=== PATIENT | male | born 1940 | race Asian ===

== ENCOUNTER 2018-08-15 09:01 | Inpatient (IN) | payer OTHER, MEDICAID ==
[2018-08-15] MEDS ORDERED: NS 1,000 ML IV ONE (09:09)
--- NOTE | 2018-08-15 09:12 | EDPHY ---
H & P Time Seen by Provider: 08/15/18 09:09 HPI/ROS: CHIEF COMPLAINT: Found down HISTORY OF PRESENT ILLNESS: The patient is a 77-year-old man who was found down this morning lying on his carpet. He told paramedics that he fell last night around 9:00 p.m.. He states that he tripped but that he has been extremely weak yesterday and today. He does not know why. He denies chest pain or shortness of breath. No abdominal pain. No fevers or recent illness. He denies headache or neck pain. He does have a bruise to his left thenar eminence. It appears to be more than a day old but he thinks that is from last night. No difficulty through range of motion. He is not anticoagulated. Severity: Moderate Modifying factors: None REVIEW OF SYSTEMS: Constitutional: See HPI denies: chills, fever, recent illness, recent injury EENTM: denies: blurred vision, double vision, nose congestion Respiratory: denies: cough, shortness of breath Cardiac: denies: chest pain, irregular heart rate, lightheadedness, palpitations Gastrointestinal/Abdominal: denies: abdominal pain, diarrhea, nausea, vomiting, blood streaked stools Genitourinary: denies: dysuria, frequency, hematuria, pain Musculoskeletal: See HPI Skin: denies: lesions, rash, jaundice, bruising Neurological: denies: headache, numbness, paresthesia, tingling, dizziness, weakness Hematologic/Lymphatic: denies: blood clots, easy bleeding, easy bruising Immunologic/allergic: denies: HIV/AIDS, transplant 10 systems reviewed and negative except as noted EXAM: GENERAL: Weak, slow, well-nourished and in no acute distress. No obvious trauma HEAD: Atraumatic, normocephalic. EYES: Pupils equal round and reactive to light, extraocular movements intact, sclera anicteric, conjunctiva are normal. ENT: TMs normal, nares patent, oropharynx clear without exudates. Moist mucous membranes. NECK: Normal range of motion, supple without lymphadenopathy or JVD. No tenderness LUNGS: Breath sounds clear to auscultation bilaterally and equal. No wheezes rales or rhonchi. HEART: Regular rate and rhythm without murmurs, rubs or gallops. ABDOMEN: Soft, nontender, normoactive bowel sounds. No guarding, no rebound. No masses appreciated. BACK: No CVA tenderness, no spinal tenderness, step-offs or deformities EXTREMITIES: Normal range of motion, no pitting or edema. No clubbing or cyanosis. NEUROLOGICAL: NIH stroke score 0. Cranial nerves II through XII grossly intact. Normal speech. 5/5 strength, normal movement in all extremities, normal sensation, normal reflexes, normal cerebellar exam PSYCH: Normal mood, normal affect. SKIN: Warm, dry, normal turgor, no visible rashes or lesions. Source: Patient Exam Limitations: No limitations - Medical/Surgical History Hx Asthma: No Hx Chronic Respiratory Disease: No Hx Diabetes: Yes Hx Cardiac Disease: Yes Hx Renal Disease: No Hx Cirrhosis: No Hx Alcoholism: No Hx HIV/AIDS: No Hx Splenectomy or Spleen Trauma: No Other PMH: AFIB. HEP C. HTN, DM - Family History Significant Family History: No pertinent family hx - Social History Smoking Status: Never smoked Alcohol Use: None Constitutional: Initial Vital Signs Temperature (C) 36.7 C 08/15/18 09:11 Heart Rate 82 08/15/18 09:11 Respiratory Rate 16 08/15/18 09:11 Blood Pressure 142/90 H 08/15/18 09:11 O2 Sat (%) 96 08/15/18 09:11 O2 Delivery Mode Room Air Allergies/Adverse Reactions: No Known Allergies Allergy (Verified 01/19/18 10:08) Home Medications: Medication Instructions Recorded Aspirin EC [Aspirin EC 81 mg (*)] 81 mg PO DAILY 01/19/18 Gabapentin 600 mg PO DAILY@1930 01/19/18 Lisinopril [Zestril 20 mg (*)] 20 mg PO DAILY 01/19/18 Multivitamins [Multivitamin (*)] 1 each PO DAILY 01/19/18 Polyethylene Glycol 3350 [Miralax 17 gm PO DAILY pkt 01/22/18 17 gm (*)] Pravastatin Sodium [Pravachol] 40 mg PO DAILY tab 01/22/18 Sennosides [Senokot] 1 tab PO DAILY tab 01/22/18 Cyanocobalamin [Vitamin B12 (*)] 1,000 mcg PO DAILY 08/15/18 Medical Decision Making - Diagnostics EKG Interpretation: An EKG obtained and was read and documented in trace view. Please see trace view for full reading and report. Sinus rhythm, first-degree block, similar to previous Imaging Results: Imaging Impressions Chest X-Ray 08/15/18 09:10 Impression: Mild prominence of the cardiac silhouette; otherwise negative chest. No pneumonia identified.. Head CT 08/15/18 09:12 Impression: Nothing acute. Findings and recommendations discussed with Lan Sen at 9:50 a.m. on 08/15. Final report concurs with initial preliminary interpretation. 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 Imaging: Discussed imaging studies w/ calliope player Radiologist ED Course/Re-evaluation: 10:15 a.m.. Patient's x-rays are reassuring. He is in mild rhabdo. He is being hydrated. No renal dysfunction at this point. Plan to admit. Will start antibiotics for elevated lactate. Urinalysis pending. Have been in communication with patient's son who is an orthopedic surgeon here. 11:45 a.m. I discussed the case with Tamera who accepted for the hospitalist service. Will treat for rhabdo and generalized weakness. Urinalysis unremarkable except for small amount of blood likely from the catheter. Patient has received antibiotics. He tells me that he is still feeling quite weak. He denies any focal pain. Differential Diagnosis: Partial list of the Differential diagnosis considered include but were not limited to; rhabdomyolysis, dehydration, CVA, sepsis, urinary tract infection and although unlikely based on the history and physical exam, I also considered pneumonia, intracranial hemorrhage, cervical spine injury. - Data Points Laboratory Results: Laboratory Results 08/15/18 09:15 08/15/18 09:15 08/15/18 08/15/18 08/15/18 11:13 10:28 09:20 WBC RBC Hgb Hct MCV MCH MCHC RDW Plt Count MPV Neut % (Auto) Lymph % (Auto) Reagan % (Auto) Eos % (Auto) Baso % (Auto) Nucleat RBC Rel Count Absolute Neuts (auto) Absolute Lymphs (auto) Absolute Monos (auto) Absolute Eos (auto) Absolute Basos (auto) Absolute Nucleated RBC Immature Gran % Immature Gran # PT INR APTT VBG Lactic Acid 2.5 mmol/L H mmol/L 3.1 mmol/L H mmol/L (0.7-2.1) (0.7-2.1) Sodium Potassium Chloride Carbon Dioxide Anion Gap BUN Creatinine Estimated GFR Glucose Calcium Phosphorus Total Bilirubin Creatine Kinase CK-MB (CK-2) Fraction CK-MB (CK-2) % Creatine Kinase Interp POC Troponin I Urine Color YELLOW Urine Appearance CLEAR Urine pH 5.0 (5.0-7.5) Ur Specific [place] 1.015 (1.002-1.030) Urine Protein NEGATIVE (NEGATIVE) Urine Ketones TRACE H (NEGATIVE) Urine Blood 1+ H (NEGATIVE) Urine Nitrate NEGATIVE (NEGATIVE) Urine Bilirubin NEGATIVE (NEGATIVE) Urine Urobilinogen NEGATIVE EU EU (0.2-1.0) Ur Leukocyte Esterase NEGATIVE (NEGATIVE) Urine RBC 3-5 /hpf H /hpf (0-3) Urine WBC 0-1 /hpf /hpf (0-3) Ur Epithelial Cells NONE SEEN /lpf /lpf (NONE-1+) Hyaline Casts 1-5 /lpf /lpf (0-1) Urine Mucus TRACE /lpf /lpf (NONE-1+) Urine Glucose 1+ H (NEGATIVE) 08/15/18 08/15/18 08/15/18 09:15 09:15 09:15 WBC 12.97 10^3/uL H 10^3/uL (3.80-9.50) RBC 5.73 10^6/uL 10^6/uL (4.40-6.38) Hgb 16.9 g/dL g/dL (13.7-17.5) Hct 50.5 % % (40.0-51.0) MCV 88.1 fL fL (81.5-99.8) MCH 29.5 pg pg (27.9-34.1) MCHC 33.5 g/dL g/dL (32.4-36.7) RDW 13.3 % % (11.5-15.2) Plt Count 230 10^3/uL 10^3/uL (150-400) MPV 10.0 fL fL (8.7-11.7) Neut % (Auto) 86.0 % H % (39.3-74.2) Lymph % (Auto) 5.5 % L % (15.0-45.0) Reagan % (Auto) 7.4 % % (4.5-13.0) Eos % (Auto) 0.2 % L % (0.6-7.6) Baso % (Auto) 0.4 % % (0.3-1.7) Nucleat RBC Rel Count 0.0 % % (0.0-0.2) Absolute Neuts (auto) 11.16 10^3/uL H 10^3/uL (1.70-6.50) Absolute Lymphs (auto) 0.71 10^3/uL L 10^3/uL (1.00-3.00) Absolute Monos (auto) 0.96 10^3/uL H 10^3/uL (0.30-0.80) Absolute Eos (auto) 0.02 10^3/uL L 10^3/uL (0.03-0.40) Absolute Basos (auto) 0.05 10^3/uL 10^3/uL (0.02-0.10) Absolute Nucleated RBC 0.00 10^3/uL 10^3/uL (0-0.01) Immature Gran % 0.5 % % (0.0-1.1) Immature Gran # 0.07 10^3/uL 10^3/uL (0.00-0.10) PT 12.3 SEC SEC (12.0-15.0) INR 0.95 (0.83-1.16) APTT 27.9 SEC SEC (23.0-38.0) VBG Lactic Acid Sodium 140 mEq/L mEq/L (135-145) Potassium 4.1 mEq/L mEq/L (3.5-5.2) Chloride 104 mEq/L mEq/L (97-110) Carbon Dioxide 23 mEq/l mEq/l (22-31) Anion Gap 13 mEq/L mEq/L (6-14) BUN 23 mg/dL mg/dL (7-23) Creatinine 1.1 mg/dL mg/dL (0.7-1.3) Estimated GFR > 60 Glucose 124 mg/dL H mg/dL (70-100) Calcium 11.5 mg/dL H mg/dL (8.5-10.4) Phosphorus 2.4 mg/dL L mg/dL (2.5-4.5) Total Bilirubin 1.3 mg/dL mg/dL (0.1-1.4) Creatine Kinase 3912 IU/L H IU/L (0-224) CK-MB (CK-2) Fraction 40.00 ng/mL H ng/mL (0.00-4.55) CK-MB (CK-2) % < 0.1 % % (0.0-4.0) Creatine Kinase Interp NEGATIVE (NEGATIVE) POC Troponin I Urine Color Urine Appearance Urine pH Ur Specific [place] Urine Protein Urine Ketones Urine Blood Urine Nitrate Urine Bilirubin Urine Urobilinogen Ur Leukocyte Esterase Urine RBC Urine WBC Ur Epithelial Cells Hyaline Casts Urine Mucus Urine Glucose 08/15/18 09:11 WBC RBC Hgb Hct MCV MCH MCHC RDW Plt Count MPV Neut % (Auto) Lymph % (Auto) Reagan % (Auto) Eos % (Auto) Baso % (Auto) Nucleat RBC Rel Count Absolute Neuts (auto) Absolute Lymphs (auto) Absolute Monos (auto) Absolute Eos (auto) Absolute Basos (auto) Absolute Nucleated RBC Immature Gran % Immature Gran # PT INR APTT VBG Lactic Acid Sodium Potassium Chloride Carbon Dioxide Anion Gap BUN Creatinine Estimated GFR Glucose Calcium Phosphorus Total Bilirubin Creatine Kinase CK-MB (CK-2) Fraction CK-MB (CK-2) % Creatine Kinase Interp POC Troponin I 0.04 ng/mL ng/mL (0.00-0.08) Urine Color Urine Appearance Urine pH Ur Specific [place] Urine Protein Urine Ketones Urine Blood Urine Nitrate Urine Bilirubin Urine Urobilinogen Ur Leukocyte Esterase Urine RBC Urine WBC Ur Epithelial Cells Hyaline Casts Urine Mucus Urine Glucose Medications Given: Discontinued Medications Sodium Chloride (Ns) 1,000 mls @ 0 mls/hr IV EDNOW ONE; Wide Open PRN Reason: Protocol Stop: 08/15/18 09:10 Last Admin: 08/15/18 10:04 Dose: 1,000 mls Sodium Chloride (Ns) 2,000 mls @ 4,000 mls/hr 30 ml/kg infuse over 30 min ( 2000 ml) IV EDNOW ONE PRN Reason: Protocol Stop: 08/15/18 10:21 Last Admin: 08/15/18 11:00 Dose: 1,000 mls Ceftriaxone Sodium/Dextrose (Rocephin 1 Gm (Premix)) 50 mls @ 100 mls/hr IV EDNOW ONE PRN Reason: Protocol Stop: 08/15/18 10:24 Last Admin: 08/15/18 11:18 Dose: 50 mls Point of Care Test Results: Chemistry 08/15/18 09:11 POC Troponin I 0.04 ng/mL ng/mL (0.00-0.08) Departure - Departure Disposition: [facility] Inpatient Acute Clinical Impression: Generalized weakness Rhabdomyolysis Qualifiers: Rhabdomyolysis type: non-traumatic Qualified Code(s): M62.82 - Rhabdomyolysis Condition: Fair
[2018-08-15 09:20] LABS: PLATELET COUNT 230 10^3/uL (150-400)
[2018-08-15 09:34] LABS: INR 0.95 (0.83-1.16); PROTIME(PATIENT) 12.3 SEC (12.0-15.0)
[2018-08-15] MEDS ORDERED: NS 2,000 ML IV ONE (09:52)
[2018-08-15 10:09] LABS: CREATINE KINASE 3912 IU/L (0-224)
--- NOTE | 2018-08-15 11:34 | CPEKG ---
Test Reason : OPEN Blood Pressure : / mmHG Vent. Rate : 086 BPM Atrial Rate : 088 BPM P-R Int : 280 ms QRS Dur : 099 ms QT Int : 378 ms P-R-T Axes : 071 052 057 degrees QTc Int : 452 ms Sinus rhythm Prolonged MI interval Borderline ST elevation, anterior leads Confirmed by Lan Sen ([id number]) on 08/15/2018 11:34:06 AM Referred By: Lan Sen Confirmed By:Lan Sen
[2018-08-15] MEDS ORDERED: ONDANSETRON DISINTEGRATING 4 MG TAB PO PRN (14:17)
[2018-08-15] MEDS ORDERED: ACETAMINOPHEN 325 MG TAB PO PRN (14:17)
[2018-08-15] MEDS ORDERED: ONDANSETRON 4 MG/2 ML VIAL IVP PRN (14:17)
--- NOTE | 2018-08-15 14:53 | GHP ---
[f rep st] HISTORY AND PHYSICAL DATE OF ADMISSION: 08/15/2018 HISTORY OF PRESENT ILLNESS: The patient is a pleasant 77-year-old gentleman with a history of vascul ar cerebellar parkinsonism, who has had somewhat significant decline over the last year requiring him to move from [place] to be with his son and [id number], who are physicians here at [facility]. About 6 to 8 months ago, he moved from his son's house to [facility] where he hopson s been doing okay. His son describes his gait as shuffling and using a walker. Last night, he fell. He was unable to get up and brought in this morning when he was found by staff. He denies antecede nt chest pain, palpitations, nausea, vomiting, or diarrhea. He says he has been eating and drinking well. He did not have lightheadedness or palpitations prior to this. The patient is somewhat retice nt with history. He answers questions and speaks slowly consistent with a patient with a Parkinson-l guillermo syndrome. He denies painful areas on his body. No fever or chills. REVIEW OF SYSTEMS: Complete 10-point review of systems conducted and negative except as noted in the HPI. 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 2. Neuropathy. 3. Hypertension. 4. Hyperlipidemia. ALLERGIES: No known drug allergies. HOME MEDICATIONS: Aspirin, cyanocobalamin, gabapentin, lisinopril, multivitamin, MiraLAX, pravastati n, and senna. He has had constipation in the past, but has been doing well. SOCIAL HISTORY: He is DNR. His son is Dakota Catherine, who is a [employer] shoulder surgeon. FAMILY HISTORY: Reviewed and unremarkable. PHYSICAL EXAMINATION: VITAL SIGNS: Temperature 36.6, blood pressure 128/77, pulse 80, breathing 12 times a minute, and 95% on room air. GENERAL: No acute distress, lying flat. HEENT: Sclerae are a nicteric. Oropharynx clear. Mucous membranes are moist. NECK: Supple without lymphadenopathy or J VD. LUNGS: Clear to auscultation bilaterally. HEART: S1 and S2. ABDOMEN: Soft, nontender, and n ondistended. LOWER EXTREMITIES: Without edema. Calves are nontender. SKIN: Without rash. NEUROL OGIC: Exam is nonfocal. There are no focal areas of bruising. There is no pain when I palpate his hips, shoulders, elbows, or ankles. No lower extremity edema. LABS: White count 13, hematocrit 50, and platelets 230,000. INR is normal at 1. Venous lactate was slightly elevated at 3.1, now 2.5. Sodium 140, potassium 4.1, chloride 104, bicarbonate 22, BUN 23, and creatinine 1.1. His baseline creatinine is 0.8 to 1. Calcium is slightly elevated at 11.5. It has been intermittently high typically would presence with slight dehydration. CK is 3912, and poin t of care troponin is 0.04, which is a negative value. Urinalysis shows 3 to 5 red cells, otherwise unremarkable. EKG interpreted by me shows sinus at 86 with normal axis and intervals. There are no ST-T wave changes. Chest x-ray interpreted by me shows mild prominence of cardiac silhouette, otherw ise unremarkable. No infiltrate. Noncontrast head CT is unremarkable. Hand x-ray shows osteoarthritis, but no fracture. I have discu ssed the case with Dr. Lan Sen. ASSESSMENT/PLAN: A 77-year-old gentleman with vascular parkinsonism, who presents with apparent mech anical fall and mild rhabdomyolysis. 1. Rhabdomyolysis. We will repeat a CK now. If it is trending up, we will continue to follow and c ontinue hydration. If it has flattened, we will stop following it. 2. Mechanical fall. I think he has a shuffling gait. I think he is at high risk of falling, and he is living somewhat independently. I think this is the etiology of his falls. In discussion with hi s son, we are not going to hannah medical cause of falls unless something becomes clinically apparent. 3. Lactic acidosis. I suspect this is delayed clearance in the setting of the patient's mild volume depletion. Will repeat. 4. Acute kidney injury, mild. 5. Hypercalcemia. I think this is volume related, but we will check a PTH for completeness. 6. Prophylaxis with sequential compression devices. CODE STATUS: Do not resuscitate. DISPOSITION: Inpatient status. /[id number]/MODL
[2018-08-15 16:52] LABS: CREATINE KINASE 2827 IU/L (0-224)
[2018-08-15] MEDS: NS 1,000 ML IV SCH ×2 (17:11→22:43)
[2018-08-15] MEDS: GABAPENTIN 300 MG CAP PO SCH (22:09)
[2018-08-16] MEDS: POLYETHYLENE GLYCOL 3350 17 GM PKT PO SCH (09:32)
[2018-08-16] MEDS: SENNOSIDES 1 TAB PO SCH (09:35)
[2018-08-16] MEDS: ASPIRIN EC 81 MG TAB PO SCH (09:35)
[2018-08-16] MEDS: LISINOPRIL 20 MG TAB PO SCH (09:35)
[2018-08-16] MEDS: MULTIVITAMINS 1 EACH TAB PO SCH (09:35)
[2018-08-16] MEDS: PRAVASTATIN SODIUM 40 MG TAB PO SCH (09:35)
[2018-08-16] MEDS: CYANO/VITAMIN B12 1000 MCG TAB PO SCH (09:35)
--- NOTE | 2018-08-16 13:06 | PDMN ---
Medical Necessity Medical necessity: Pt meets IP criteria per MD & MCG MG-MD Musculoskeletal Disease; est los >2 mn for eval/tx of rhabdomyolysis w/acute kidney injury & confusion s/p mechanical fall; admit for further monitoring, follow-up labs, IVFs & therapies; hx vascular parkinsonism; per H&P & order 08/15/18
[2018-08-16] MEDS: NS 1,000 ML IV SCH ×2 (14:30→21:35)
--- NOTE | 2018-08-16 15:27 | HOSPPROG ---
Hospitalist Progress Note Assessment/Plan: Subjective Follow-up on rhabdomyolysis. Patient was sitting in the chair at the bedside having breakfast at the time my evaluation. No acute events overnight. Patient denies having syncope with his fall. Objective Vitals as detailed below Physical exam General-awake alert conversant no acute distress Heart-regular rate and rhythm no murmurs Lungs-Clear to auscultation with normal respiratory effort Abdomen-soft nontender nondistended normal bowel sounds -no Kimbrough catheter in place Extremities-no significant pitting edema or calf pain with palpation Skin-no concerning skin rashes noted Objective Neuro-masked facies with bradykinesia of present Labs as detailed below Assessment plan Rhabdomyolysis-improving. CPK has declined from [id number]. Continue IV fluids and reassess again tomorrow. Fall-continue work with physical therapy. Patient was living at [facility] prior to coming to the hospital and receiving physical therapy per his report. Lactic acidosis-resolved with a repeat lactic acid level at 1.8. Hypercalcemia-improved from 11.5-9.5. Likely hyperparathyroidism as parathyroid hormone level elevated at 110. Will check a vitamin-D level with tomorrow morning's labs. I will recommend outpatient follow-up of his calcium level at the time of discharge. Parkinsonism-no current medical therapy to my knowledge. Neuropathy-patient is on gabapentin. Hypertension-controlled with current lisinopril. Monitor for hypotension. Hyperlipidemia-pravastatin. DVT prophylaxis-compression devices. Disposition-upon resolution of his rhabdomyolysis I would anticipate he would be stable to return back to [facility] but the plan for continued physical therapy and occupational therapy. Objective: Vital Signs Temp Pulse Resp BP Pulse Ox 36.4 C 77 16 129/71 H 94 08/16/18 11:49 08/16/18 11:49 08/16/18 11:49 08/16/18 11:49 08/16/18 11:49 Laboratory Results 08/16/18 06:13 08/15/18 08/16/18 08/17/18 05:59 05:59 05:59 Intake Total 1337 Balance 1337 PT 12.3 SEC (12.0-15.0) 08/15/18 09:15 INR 0.95 (0.83-1.16) 08/15/18 09:15 ICD10 Worksheet Patient Problems: Problems Problem Status Onset Generalized weakness Acute Rhabdomyolysis Acute Constipation Acute Dehydration Acute Near syncope Acute
--- NOTE | 2018-08-16 15:33 | ASMTCMCOM ---
CM Note CM Note Notes: Pt has been admitted from [facility] after a presumed fall. He was found down. He has generalized weakness, rhabdo. He has a hx of vascular Parkinson's and falls. PT is recommending inpt rehab, OT SNF. Pt's son and daughter in law are MDs in [facility] system. Therapy recommendations to be discussed with family. CM will follow for d/c needs. D/C plan: TBD Date Signed: 08/16/2018 03:33 PM Electronically Signed By:ROSA M Roy
--- NOTE | 2018-08-16 15:59 | ASMTCMCOM ---
CM Note CM Note Notes: Spoke with pt's son regarding PT/OT recommendations. It's unclear at this time if pt would be able to do 3 hrs of therapy at . Dr Catherine would like to wait a day or two to see if his father gets stronger. He is agreeable to a short term SNF stay if indicated. Pt gets 3 hrs of PT/OT per week at [facility]. D/C plan: TBD Date Signed: 08/16/2018 03:58 PM Electronically Signed By:ROSA M Roy
[2018-08-16] MEDS: GABAPENTIN 300 MG CAP PO SCH (19:10)
[2018-08-17 05:39] LABS: CREATINE KINASE 823 IU/L (0-224)
[2018-08-17] MEDS: SENNOSIDES 1 TAB PO SCH (09:55)
[2018-08-17] MEDS: CYANO/VITAMIN B12 1000 MCG TAB PO SCH (09:55)
[2018-08-17] MEDS: PRAVASTATIN SODIUM 40 MG TAB PO SCH (09:55)
[2018-08-17] MEDS: POLYETHYLENE GLYCOL 3350 17 GM PKT PO SCH (09:55)
[2018-08-17] MEDS: ASPIRIN EC 81 MG TAB PO SCH (09:55)
[2018-08-17] MEDS: LISINOPRIL 20 MG TAB PO SCH (09:55)
[2018-08-17] MEDS: MULTIVITAMINS 1 EACH TAB PO SCH (09:55)
--- NOTE | 2018-08-17 17:01 | HOSPPROG ---
Hospitalist Progress Note Assessment/Plan: Subjective Follow-up on rhabdomyolysis. Patient was resting comfortably in his bed today. Arousable and more conversant today as compared to yesterday's exam. We discussed basketball briefly as he was watching the [employer] tournament. Case management also made contact with me after discussion with physical therapy. A request was made for rehab consultation as well as neurologic consultation with the question of should he be on medical therapy. I reviewed the current running diagnosis of vascular parkinsonism with case management. Objective Vitals as detailed below Physical exam General-awake alert conversant no acute distress Heart-regular rate and rhythm no murmurs Lungs-Clear to auscultation with normal respiratory effort Abdomen-soft nontender nondistended normal bowel sounds -no Kimbrough catheter in place Extremities-no significant pitting edema or calf pain with palpation Skin-no concerning skin rashes noted Objective Neuro-masked facies with bradykinesia of present Labs as detailed below Assessment plan Rhabdomyolysis-improving. CPK declining. I think we can hold off on IV fluids at this time and reassess again tomorrow morning. Fall-continue work with physical therapy. Patient was living at [facility] prior to coming to the hospital and receiving physical therapy per his report. Will await inpatient rehab consultation as well. Hypercalcemia-improved from 11.5. Likely hyperparathyroidism as parathyroid hormone level elevated at 110. Vitamin-D level appears adequate at 30. I will recommend outpatient follow-up of his calcium level at the time of discharge. Parkinsonism-vascular. Neurology consult request placed for 2nd opinion. Neuropathy-patient is on gabapentin. Hypertension-controlled with current lisinopril. Monitor for hypotension. Hyperlipidemia-pravastatin. DVT prophylaxis-compression devices. Disposition-upon resolution of his rhabdomyolysis I would anticipate he would be stable to return back to [facility] but the plan for continued physical therapy and occupational therapy. Objective: Vital Signs Temp Pulse Resp BP Pulse Ox 36.6 C 70 16 163/82 H 94 08/17/18 16:00 08/17/18 16:00 08/17/18 16:00 08/17/18 16:00 08/17/18 16:00 Laboratory Results 08/17/18 05:07 08/16/18 08/17/18 08/18/18 05:59 05:59 05:59 Intake Total 1337 2932 Balance 1337 2932 PT 12.3 SEC (12.0-15.0) 08/15/18 09:15 INR 0.95 (0.83-1.16) 08/15/18 09:15 ICD10 Worksheet Patient Problems: Problems Problem Status Onset Generalized weakness Acute Rhabdomyolysis Acute Constipation Acute Dehydration Acute Near syncope Acute
[2018-08-17] MEDS: GABAPENTIN 300 MG CAP PO SCH (19:24)
[2018-08-18 05:29] LABS: CREATINE KINASE 403 IU/L (0-224)
[2018-08-18] MEDS: MULTIVITAMINS 1 EACH TAB PO SCH (08:20)
[2018-08-18] MEDS: LISINOPRIL 20 MG TAB PO SCH (08:20)
[2018-08-18] MEDS: ASPIRIN EC 81 MG TAB PO SCH (08:20)
[2018-08-18] MEDS: PRAVASTATIN SODIUM 40 MG TAB PO SCH (08:20)
[2018-08-18] MEDS: CYANO/VITAMIN B12 1000 MCG TAB PO SCH (08:20)
[2018-08-18] MEDS: SENNOSIDES 1 TAB PO SCH (08:21)
[2018-08-18] MEDS: POLYETHYLENE GLYCOL 3350 17 GM PKT PO SCH (08:21)
[2018-08-18] MEDS ORDERED: POTASSIUM CL 20 MEQ/15 ML UDCUP PO ONE (08:24)
--- NOTE | 2018-08-18 10:18 | GCON ---
[f rep st] CONSULTATION NEUROLOGIC CONSULTATION HISTORY: The patient is a 77-year-old gentleman who I am asked to see in neurologic consultation reg arding the question of vascular parkinsonism. He was seen in a previous consultation in the hospital by Dr. Oviedo when similar questions were raised about falling and some parkinsonism. That consult ation took place in December of 2017. 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 The patient has not had a trial of dopamine therapy. He had been doing outpatient therapy, and reports to me that he struggles with his walking and balance, and says that marilyn xie needs a walker to help maintain balance, has a tendency to shuffle, but denies any tremor, and no o ne has specifically documented tremor. Symptoms have been evolving over at least the last 3 years. He came from [place] to be with his son, and recently went to [facility] in the last 6 months. Marilyn xie fell the evening prior to admission here on the . He could not get up and developed some rhabd omyolysis. He has additional history of neuropathy, hypertension, and hyperlipidemia. Since admission, he has been monitor and doing therapy, and questions were raised by Case Management as well as the rehab team about whether he could be a candidate for any dopamine therapy as they try to help disposition appropriately. FAMILY HISTORY: Negative for Parkinson disease. SOCIAL HISTORY: No smoking or alcohol. MEDICATIONS: At home were B12, aspirin, gabapentin, lisinopril, MiraLAX, pravastatin, senna. ALLERGIES: No known drug allergies. Here in the hospital, he continues on regular medicines. REVIEW OF SYSTEMS: Unremarkable for chest pain, palpitations, or shortness of breath. He does have some slowness of processing and soft voice, which is not new. PHYSICAL EXAM: VITAL SIGNS: Blood pressure 141/92, pulse of 58, respirations 16, temperature 36.5. GENERAL: He is well developed, lying in the bed in no acute distress. NECK: Supple with no bruits or masses. CARDIAC: Regular rate and rhythm. No murmur. NEUROLOGIC: He is awake and alert with fairly well-maintained attention. He has generalized bradykinesia, which is at least moderate, with decreased facial expression and decreased eye blink. There is a prolonged latency to answer question s, but he typically answers them appropriately. He is generally oriented, but has some decrease in s hort-term memory more than long-term memory. General fund of knowledge seems to be reduced a bit. T he voice is soft, but I can understand him. He does not express any hallucinations or delusions. He can spontaneously ask me appropriate questions about his medical condition and the thoughts about wh at is happening. Pupils are 2 mm and reactive. I cannot view the fundi. Extraocular movements are intact with a full range of eye movement. Normal facial sensation and strength, but the decreased fa cial movement is present. Palate elevates symmetrically. Tongue protrudes midline. MOTOR: The mus pasquale tone is not significantly increased, and the generalized muscle power is in the 4/5 range through out without focal weakness. No resting or postural or action tremor on [id number]. Rapid altern ating movements are significantly slowed in the hands bilaterally. Reflexes 1+. No pathologic refle xes. I did not have him try to walk with me currently. I reviewed the brain MRI from December 2017. Although there are changes of vascular disease, it is not particularly prominent and I do not see a lot of brainstem ischemic change. There is some basal ojssy glia ischemic change, but that is not particularly prominent either. He has generalized atrophy, as well as some congenital anomaly of the septum. It does not look like a pattern of hydrocephalus. He has had imaging when he came here on the of a head CT. This does not show any evidence of acut e infarction. LABORATORY STUDIES: Generally unremarkable cell count and electrolytes. The CK has come down quickl y, now down to 403. IMPRESSION: Total unit time of 70 minutes. The patient has a complex history of evolving physical d ecline with prominent bradykinesia and soft voice and gait abnormality with shuffling gait consistent with a parkinsonian syndrome. I cannot comfortably make a diagnosis of vascular parkinsonism, altho ugh that is a possibility. He lacks the asymmetric resting tremor and prominent asymmetry of idiopat hic, classic Parkinson disease, but he could have a relative dopamine deficiency with this appearance and the slow evolution. I think a trial of low-dose dopamine would be reasonable. The risk is fairly low, and I will prescri be 25/100 mg of Sinemet, taking half a tablet 3 times a day before meals or after meals to see if any thing helps, and that could gradually be increased, watching for any potential side effects. The pat maria ines is comfortable pursuing this. We could obtain a dopamine transportation scan, but that probably is not critical right now as much as giving him a trial of dopamine. If there are not significant i mprovements with the dopamine, then I would not recommend long-term use, but at least trying to gradu ally work this up to as many as perhaps 6 pills per day before giving up would be a reasonable trial, as long as we carefully monitor for any side effects. /[id number]/MODL
--- NOTE | 2018-08-18 15:18 | ASMTCMCOM ---
CM Note CM Note Notes: Pt was accepted today by [facility] inpatient rehab and they will have a bed available tomorrow. Pt's son would like to move forward with this plan on discharge. Pt to start Cinemet today and likely discharge in a day or two. Referral sent to [facility] inpatient rehab. CM to follow. D/C Plan: [facility] Inpatient Rehab Date Signed: 08/18/2018 03:17 PM Electronically Signed By:Babita Raygoza
[2018-08-18] MEDS: CARBIDOPA/LEVODOPA 25 MG/100 MG TAB PO SCH ×2 (15:58→20:27)
--- NOTE | 2018-08-18 17:08 | HOSPPROG ---
Hospitalist Progress Note Assessment/Plan: Subjective Follow-up on rhabdomyolysis. Patient was resting comfortably in his bed today. No acute events over last night. Case management made me aware that he was septic for inpatient rehab tomorrow. I called his son as well to update him on the current status of his case and plan for discharge tomorrow. Objective Vitals as detailed below Physical exam General-awake alert conversant no acute distress Heart-regular rate and rhythm no murmurs Lungs-Clear to auscultation with normal respiratory effort Abdomen-soft nontender nondistended normal bowel sounds -no Kimbrough catheter in place Extremities-no significant pitting edema or calf pain with palpation Skin-no concerning skin rashes noted Objective Neuro-masked facies with bradykinesia of present Labs as detailed below Assessment plan Rhabdomyolysis-I would consider resolved at this point time. Fall-continue work with physical therapy. Patient was living at [facility] prior to coming to the hospital and receiving physical therapy per his report. Inpatient rehab tomorrow for further therapies. Hypercalcemia-improved from 11.5. Likely hyperparathyroidism as parathyroid hormone level elevated at 110. Vitamin-D level appears adequate at 30. I will recommend outpatient follow-up of his calcium level at the time of discharge. 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 I appreciate Dr. Martell' opinion today. And will monitor closely his symptoms with initiation of Sinemet. Neuropathy-patient is on gabapentin. Hypertension-uncontrolled readings noted during this hospitalization. I have added amlodipine to the current lisinopril. Hyperlipidemia-pravastatin. DVT prophylaxis-compression devices. Disposition-inpatient rehab tomorrow. Objective: Vital Signs Temp Pulse Resp BP Pulse Ox 36.7 C 77 16 152/92 H 94 08/18/18 16:00 08/18/18 16:00 08/18/18 16:00 08/18/18 16:00 08/18/18 16:00 Laboratory Results 08/18/18 04:52 08/17/18 08/18/18 08/19/18 05:59 05:59 05:59 Intake Total 2932 300 Balance 2932 300 PT 12.3 SEC (12.0-15.0) 08/15/18 09:15 INR 0.95 (0.83-1.16) 08/15/18 09:15 ICD10 Worksheet Patient Problems: Problems Problem Status Onset Generalized weakness Acute Parkinsonian syndrome Acute Rhabdomyolysis Acute Constipation Acute Dehydration Acute Near syncope Acute
[2018-08-18] MEDS: GABAPENTIN 300 MG CAP PO SCH (18:24)
[2018-08-19] MEDS: POLYETHYLENE GLYCOL 3350 17 GM PKT PO SCH (09:08)
[2018-08-19] MEDS: LISINOPRIL 20 MG TAB PO SCH (09:08)
[2018-08-19] MEDS: CYANO/VITAMIN B12 1000 MCG TAB PO SCH (09:09)
[2018-08-19] MEDS: PRAVASTATIN SODIUM 40 MG TAB PO SCH (09:09)
[2018-08-19] MEDS: ASPIRIN EC 81 MG TAB PO SCH (09:09)
[2018-08-19] MEDS: SENNOSIDES 1 TAB PO SCH (09:09)
[2018-08-19] MEDS: MULTIVITAMINS 1 EACH TAB PO SCH (09:09)
[2018-08-19] MEDS: CARBIDOPA/LEVODOPA 25 MG/100 MG TAB PO SCH (09:09)
--- NOTE | 2018-08-19 09:24 | NEUROPROG ---
Assessment: Total unit time of 25 min. Patient has stable parkinsonism which could be a parkinsonian syndrome and may or may not be related to vascular disease but we are giving him a trial of low-dose Sinemet for now which can gradually be titrated upward as tolerated and managed as an outpatient. Subjective: This morning, the patient says he has no specific complaints. We initiated Sinemet half dose yesterday of 25/100 mg 3 times a day and he seems to tolerate the so far without any obvious change in mobility but it is too early for much expected change. Objective: Vital Signs Temp Pulse Resp BP Pulse Ox 36.3 C 96 18 115/66 90 L 08/19/18 07:26 08/19/18 07:26 08/19/18 07:26 08/19/18 09:09 08/19/18 07:26 Laboratory Results 08/18/18 04:52 08/18/18 08/19/18 08/20/18 05:59 05:59 05:59 Intake Total 300 480 350 Balance 300 480 350 PT 12.3 SEC (12.0-15.0) 08/15/18 09:15 INR 0.95 (0.83-1.16) 08/15/18 09:15 There is no significant change in his exam today with generalized bradykinesia. Allergies/Adverse Reactions: No Known Allergies Allergy (Verified 01/19/18 10:08)
--- NOTE | 2018-08-19 10:42 | PDIAF ---
- Diagnosis Code Status: Do Not Resuscitate - Medication Management Discharge Medications: electronically signed and located in the Home Medication List. - Orders Services needed: Physical Therapy, Occupational Therapy, Speech Language Pathologist Diet Recommendation: no restrictions on diet Diet Texture: Regular Texture Diet - Labs/Radiology BMP Date: 08/20/18 CBC w/diff Date: 08/20/18 - Follow Up Care Current Providers and Referrals: Patient,NotPresent [Unknown] - As per Instructions Osiel Martell MD [Medical Doctor] -
[2018-08-19 11:41] VITALS: BP 93/59
--- NOTE | 2018-08-19 12:17 | ASMTLACE ---
LACE Length of stay for Answers: 4-6 days current admission Acuity / Level of Answers: Yes Care: Did the patient have an inpatient admission? Comorbidities - select Answers: Cerebrovascular disease all that apply (CVA, TIA, aneurysms, vasc ular dementia) Diabetes (uncontrolled or controlled) History of falls Other Notes: AFib; Hep C; HTN # of Emergency department Answers: 1-2 visits in the last 6 months Score: 14 Date Signed: 08/19/2018 12:17 PM Electronically Signed By:Babita Raygoza
--- NOTE | 2018-08-19 13:44 | ASDISCHSUM ---
Discharge Information Plan Status:Inpatient Rehab Medically Cleared to Leave:08/19/2018 Discharge Date:08/19/2018 CM D/C Disposition:[facility] IP ADT D/C Disposition:[facility] IP Projected Discharge Date:08/19/2018 11:00 AM Transportation at D/C:Wheelchair Van Discharge Delay Reason: Follow-Up Date:08/19/2018 11:00 AM Discharge Slot: Final Diagnosis:Fall, rhabdomyolysis Placement Information Referral Type:Rehabilitation Hospital Referral ID:[id number] Provider Name:[facility] Inpatient Rehab Address 1:[address] Phone Number: Address 2: Fax Number: City:[place] Selection Factors: State:[place] Patient Contact Information Contact Name:BHAVNATRACI Relationship:Daughter Address: Work Phone: City: [facility] Phone: [facility] Code: Email: Financial Information Financial Class:Medicare Primary Plan Desc:MEDICARE INPATIENT Primary Plan Number:[id number] Secondary Plan Desc:[place] Secondary Plan Number:[id number] Assessment Information LACE LACE Length of stay for Answers: 4-6 days current admission Acuity / Level of Answers: Yes Care: Did the patient have an inpatient admission? Comorbidities - select Answers: Cerebrovascular disease all that apply (CVA, TIA, aneurysms, vasc ular dementia) Diabetes (uncontrolled or controlled) History of falls Other Notes: AFib; Hep C; HTN # of Emergency department Answers: 1-2 visits in the last 6 months Score: 14 Date Signed: 08/19/2018 12:17 PM Electronically Signed By:Babita Raygoza [facility] CM Progress Note CM Note CM Note Notes: Pt has been admitted from [facility] after a presumed fall. He was found down. He has generalized weakness, rhabdo. He has a hx of vascular Parkinson's and falls. PT is recommending inpt rehab, OT SNF. Pt's son and daughter in law are MDs in [facility] system. Therapy recommendations to be discussed with family. CM will follow for d/c needs. D/C plan: TBD Date Signed: 08/16/2018 03:33 PM Electronically Signed By:ROSA M Roy [facility] CM Progress Note CM Note CM Note Notes: Spoke with pt's son regarding PT/OT recommendations. It's unclear at this time if pt would be able to do 3 hrs of therapy at . Dr Catherine would like to wait a day or two to see if his father gets stronger. He is agreeable to a short term SNF stay if indicated. Pt gets 3 hrs of PT/OT per week at [facility]. D/C plan: TBD Date Signed: 08/16/2018 03:58 PM Electronically Signed By:ROSA M Roy [facility] CM Progress Note CM Note CM Note Notes: Pt was accepted today by [facility] inpatient rehab and they will have a bed available tomorrow. Pt's son would like to move forward with this plan on discharge. Pt to start Cinemet today and likely discharge in a day or two. Referral sent to [facility] inpatient rehab. CM to follow. D/C Plan: [facility] Inpatient Rehab Date Signed: 08/18/2018 03:17 PM Electronically Signed By:Babita Raygoza Case Management Discharge Plan Note Case Management Discharge Discharge Order Complete? Answers: Yes Patient to Obtain Answers: Other Notes: [employer] Arranged Answers: Other Notes: [facility] will Pick (Date 08/19/2018 02:00 PM & Time) Faxed Final Orders Answers: Yes Agency/Facility Transfer Answers: Yes Report Printed & Faxed to Receiving Agency Family Notified Answers: Yes Notes: CM called son Discharge Comments Notes: Pt to discharge to [facility] InPatient Rehab. RN given number to call RN report. DNR order printed out for transport. No further CM needs noted at this time. Date Signed: 08/19/2018 01:43 PM Electronically Signed By:Babita Raygoza Intervention Information Intervention Type:*Incorrect Registration Date of Service:08/15/2018 10:30 AM Patient Type:Observation Staff Member:KAYLA Anand Courtney Hours: Discipline: Severity: Comment: Intervention Type:*IM-Signed Date of Service:08/19/2018 11:16 AM Patient Type:Inpatient Staff Member:Sabine Judge Hours: Discipline: Severity: Comment:
--- NOTE | 2018-08-19 19:34 | GDS ---
[f rep st] DISCHARGE SUMMARY DISCHARGE DIAGNOSES: 1. Rhabdomyolysis. 2. Parkinsonism. HISTORY OF PRESENT ILLNESS: The patient is a pleasant 77-year-old gentleman with a past medical hist ory of parkinsonism and hypertension who presented to [facility] on 08/15/2018, after he had a fall late in the evening time. The next morning, he was found by the staff at [facility] where he has been residing and brought to the hospital for further evaluation. He had evidence of rh abdomyolysis and treated with IV fluids. Fortunately, this resolved without any major electrolyte co mplications or kidney injury. In regard to his parkinsonism, it was felt that this was likely vascul ar on prior neurologic consultation. I did request Neurology consult again on this admission with a question of considering a Sinemet trial as it was not clear to me that this had been done in the past . Dr. Martell did consult, and the patient has been started on a low dose of Sinemet, and the plan will be for outpatient followup for reassessment. HOSPITAL COURSE BY PROBLEM: 1. Rhabdomyolysis, resolved. 2. Fall. Patient will transition to inpatient rehab at [facility] for further physical therapy and occupational therapy. 3. Hypercalcemia. I think hypovolemia likely played a role as it improved promptly with IV fluids; however, hyperparathyroidism also likely playing a role as a parathyroid hormone level was elevated a t 110. The vitamin D level appeared adequate at 30. He never had any calcium levels that went above 10 throughout the hospitalization otherwise. I think this could be followed clinically as an outpat ient without any need to pursue localization of a parathyroid adenoma as no obvious indicators for in tervention at this time. 4. Parkinsonism. Patient has been started on a trial of Sinemet during this hospitalization. I hav e recommended a followup in the outpatient setting with Dr. Martell for reassessment. 5. Neuropathy. Patient has been on gabapentin and this was continued during this hospitalization. 6. Hypertension. Patient presented on lisinopril 20 mg daily. His blood pressures seemed uncontrol led during this hospitalization, so amlodipine 2.5 mg was added. 7. Hyperlipidemia. Patient has been on pravastatin. 8. DVT prophylaxis: Compression devices used during this hospitalization. DISPOSITION: Patient appears stable today for transfer to inpatient rehab. DISCHARGE PHYSICAL EXAMINATION: VITAL SIGNS: Temperature 36.3, blood pressure 115/66, heart rate 96 , respirations 18, satting 92% on room air. GENERAL: Patient appeared comfortable. He was awake, a lert. I observed him ambulating with his front wheeled walker toward the bathroom. He had a shuffli ng gait, but was stable. HEART: Regular rate and rhythm. No murmurs. LUNGS: Clear on auscultation with normal respiratory effort. ABDOMEN: Soft, nontender, nondistende d. : No Kimbrough catheter in place. EXTREMITIES: No significant edema. NOTABLE STUDIES: CPK trended down from [address] scan of the head without acute findings. Chest x-ray and hand x-ray were also unremarkable. DISCHARGE MEDICATIONS: 1. Aspirin 81 mg daily. 2. Pravastatin 40 mg daily. 3. Lisinopril 20 mg daily. 4. Amlodipine 2.5 mg daily. 5. Gabapentin 600 mg daily. 6. MiraLAX 17 g daily. 7. Senokot 1 tab daily. 8. As needed acetaminophen. DISCHARGE INSTRUCTIONS: I have recommended a followup visit with Dr. Osiel Martell after discharge from inpatient rehab for reassessment after initiating Sinemet. A followup visit with his primary ca re provider is also recommended in 1 to 2 weeks after inpatient rehab discharge. 40 minutes of time dedicated to discharge efforts. /[id number]/MODL
== END 2018-08-19 14:05 | DRG 565 ==
LOC: EDUNIT# → F3E 13:22 → OBSVTOIN 14:18
PROVIDERS: ADMIT Internal Medicine; ATTEND Internal Medicine
DX: T79.6XXA Traumatic ischemia of muscle, initial encounter (principal); N17.9 Acute kidney failure, unspecified; W19.XXXA Unspecified fall, initial encounter; G21.4 Vascular parkinsonism; E86.9 Volume depletion, unspecified; I10 Essential (primary) hypertension; E83.52 Hypercalcemia; G62.9 Polyneuropathy, unspecified; E78.5 Hyperlipidemia, unspecified; Z66 Do not resuscitate
CPT/HCPCS: 84484-ER; 96365; 97110-GP; 97116-GP; 97162-GP; 97165-GO; 97530-GO; 97530-GP; 97535-GO; J0696

== ENCOUNTER 2018-08-19 14:20 | Inpatient (IN) | payer OTHER, MEDICAID ==
[2018-08-19] MEDS ORDERED: ACETAMINOPHEN 325 MG TAB PO PRN (15:30)
[2018-08-19] MEDS: CARBIDOPA/LEVODOPA 25 MG/100 MG TAB PO SCH ×2 (16:17→21:11)
[2018-08-19] MEDS: ENOXAPARIN 40 MG/0.4 ML SYR SC SCH (16:18)
--- NOTE | 2018-08-19 16:49 | GHP ---
[f rep st] HISTORY AND PHYSICAL POST ADMISSION PHYSICIAN EVALUATION AND REHABILITATION TREATMENT PLAN DATE OF ADMISSION: 08/19/2018 DATE OF EVALUATION: 08/19/2018 TIME OF EVALUATION: 1510 REFERRING FACILITY: [facility] REFERRING PHYSICIAN: Dr. Brantley IMPAIRMENT GROUP: 3.2. DATE OF ONSET: 08/15/2018 CONSULTING PHYSICIANS: He was seen by neurologist, Dr. Martell. REHABILITATION DIAGNOSIS: Debility and fall, possibly due to parkinsonism. ETIOLOGIC DIAGNOSIS: Parkinsonism. HISTORY OF PRESENT ILLNESS: This man was admitted to [facility] on 08/15/2018, following a mechanical fall with inability to get up. He had rhabdomyolysis, which resolved quickly with hydration. He was noted to have slow movements, soft voice, and abnormal shuffling gait. He was evaluated by Neurology, and was assessed to have a movement disorder consistent with parkinsonism, possibly vascular. He was given a trial of Sinemet. STUDIES AND LABS IN THE HOSPITAL: Head CT showed no acute abnormalities, normal ventricles, and a moderate degree of central volume loss. 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 EKG showed normal sinus rhythm with a prolonged MS interval. Chest x-ray showed mild prominence of the cardiac silhouette but otherwise, was normal with no pneumonia. CBC showed elevated white blood cell count of 12.97. There was no left shift, and it was otherwise unremarkable. PT and PTT were normal. Blood gas showed venous lactic acidosis with a peak lactic acid at 3.1. Serum chemistries showed normal renal function and electrolytes. He had a high calcium initially at 11.5 and a low phosphorus of 2.4. Creatine kinase was high at 3912 on 2018, and improved to 403 by 08/18/2018. PTH intact was high at 101.9. Vitamin D level was normal at 30.3. Urinalysis showed trace ketones and 1+ blood but, otherwise, was unremarkable. PRECAUTIONS: He is a fall risk. ACTIVE COMORBIDITIES: He has no active tier 1, tier 2, or tier 3 comorbidities. PAST MEDICAL HISTORY: 1. Hepatitis C. 2. Cerebrovascular disease. 3. Atrial fibrillation. 4. Hypertension. 5. Diabetes mellitus type 2. 6. Dyslipidemia. PAST SURGICAL HISTORY: Cataracts. PREHOSPITAL MEDICATIONS: 1. Aspirin 81 mg p.o. q. day. 2. Gabapentin 600 mg p.o. daily at 1930. 3. Lisinopril 20 mg p.o. q. day. 4. Multivitamin 1 p.o. q. day. 5. Polyethylene glycol 17 g p.o. q. day. 6. Pravastatin 40 mg p.o. q. day. 7. Senna 1 tab p.o. daily. 8. Cyanocobalamin 1000 mcg p.o. q. day. ADMISSION MEDICATIONS: 1. Acetaminophen 650 mg p.o. q.4 hours p.r.n. 2. Amlodipine 2.5 mg p.o. q. day. 3. Aspirin 81 mg p.o. q. day. 4. Cyanocobalamin 1000 mcg p.o. q. day. 5. Gabapentin 600 mg p.o. daily at 193. 6. Lisinopril 20 mg p.o. q. day. 7. Multivitamin p.o. q. day. 8. Polyethylene glycol 17 g p.o. q. day. 9. Pravastatin 40 mg p.o. q. day. 10. Senna 1 tab p.o. q. day. 11. Carbidopa/levodopa 25/100 one-half tab p.o. t.i.d. ALLERGIES: There are no known drug allergies. PSYCHOSOCIAL HISTORY: He emigrated from [place] in [place]. He reports that he was a student when he came here. He is vague regarding his employment history. He says he studied agriculture but denies that he worked in agriculture. 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 He is a nonsmoker. He has a local son who is an orthopedic surgeon, and [id number] who is a foreign exchange dealer. He lives at [facility]. FAMILY HISTORY: Noncontributory. REVIEW OF SYSTEMS: He denies pain, recent weight change, fevers, chills, cough , dyspnea, nausea, vomiting, constipation, or diarrhea. He denies joint pain or joint swelling. It is unclear how aware he is of decline in physical function. He recalls the fall but is not sure exactly why it happened. REVIEW OF SYSTEMS: Otherwise a 10-point review of systems is negative. PHYSICAL EXAM: VITAL SIGNS: Blood pressure is 101/59. Heart rate is 66. Respiratory rate is 18. Oxygen saturation is 94% on room air. Temperature is 36.4 degrees centigrade. His weight is 67 kg for a body mass index of 22.5. GENERAL: This is an elderly man lying in bed wearing a hospital gown, cooperative and in no acute distress. HEENT: Extraocular movements are reduced in all directions but otherwise overall intact. Pupil reflex is difficult to determine due to very dark eyes. Mucous membranes are moist. Dentition is in good condition. He has an uncrowded airway, Mallampati class I. NECK: Supple. HEART: There is irregular rate and rhythm with occasional skipped beats. There is jugular venous distention approximately alf from clavicle to mandible. There is no edema. There are no murmurs, rubs, or gallops. LUNGS: Clear to auscultation bilaterally. ABDOMEN: Soft, nontender with normal bowel sounds and no hepatosplenomegaly. EXTREMITIES: There is no cyanosis, clubbing, or edema. Radial and dorsalis pedis pulses are 2+ bilaterally. NEUROLOGIC: He is alert. He has slow responses. Orientation is not checked, though he verifies that he lives at [facility]. Cranial nerves 2 through 12 are grossly intact, though he has reduced eye movement in all directions. There is no focal weakness. Sensation is intact to light touch. Deep tendon reflexes are 2+ bilaterally at the biceps and patellar tendon and hypoactive at the Achilles tendons. He has bradykinesia and hypophonia. He has masked facies. There is no tremor and no upper extremity rigidity. Mvtsji-qh-daeg testing is intact, but he moves slowly. CURRENT LEVEL OF FUNCTION: Per the preadmission screen. He was on a regular diet. Grooming was done with minimal assist. Dressing lower body required maximal assist. He was continent of bowel and bladder. Bed mobility required moderate assist. Transfers required moderate assist with voice cues using a front-wheeled walker. Balance required [id number]-ak-[id number] assist. Endurance was fair. He was able to ambulate 80 feet with moderate assist and voice cues. Communication and cognition were noted to be within normal limits. On today's exam, regarding communication, he has hypophonia, and cognitive status is difficult to ascertain. Otherwise, there are no significant changes from preadmission screen. 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 He was down for considerable time before he was taken to the hospital. He had rhabdomyolysis which resolved with hydration. He was noted to have hypercalcemia once again. This was seen on a previous admission with an inappropriately high PTH. He had hypertension and the addition of amlodipine to his prior prescription for lisinopril. He was evaluated by Neurology and initiated on a trial of Sinemet. He was otherwise stable and appropriate for inpatient rehabilitation. His goal is to complete a rehabilitation stay and then return to [facility] with supportive services. For a safe discharge, he will need to progress to modified independence for ADLs and functional tasks using least restrictive device. He will be medically stable with possible adjustment of Sinemet for his Parkinson's. He will have therapy with physical therapy and occupational therapy, and I am adding speech and language pathology, for 60 minutes per day for each discipline on 5 to 7 days of the week. His expected duration of stay is 7 to 10 days. It is anticipated that upon discharge, he will continue to benefit from home health services including occupational therapy, physical therapy, nursing, and possibly speech and language pathology. PLAN: 1. Parkinsonism, possibly vascular: He was initiated on Sinemet. This will be continued and will consider titration once he has been assessed by Therapies. He will have PT and OT to optimize his mobility and activities of daily living. 2. Hypophonia and possible cognitive impairment: Evaluation and treatment per Speech and Language Pathology. 3. Cerebrovascular disease: Continue secondary prevention with aspirin, blood pressure control, and lipid control. 4. Hypertension: He has had the addition of amlodipine and was previously on lisinopril. He had elevated blood pressures in the hospital as high as 164/95. However, he is currently hypotensive with a blood pressure of 101/59. Will determine his orthostatic blood pressures. May have to limit his antihypertensive medications if he is orthostatic. 5. Peripheral neuropathy, for which, he has been prescribed gabapentin. Will have to determine further history regarding whether this has been helpful and exactly what it is prescribed for. 6. Rhabdomyolysis appears to have resolved: He had mild hypokalemia yesterday. We will check BMP in the morning to ensure normal renal function. 7. Leukocytosis on the day of admission: We will check a CBC in the morning to ensure that this has resolved. 8. History of hepatitis C: Tested with hepatitis C antibody test reactive on . On 11/28/2017, HCV RNA was undetectable with serum. 9. Irregular heart beat: He was in sinus rhythm when he presented to the hospital. I will order an EKG to be done either today or tomorrow to verify his current cardiac rhythm. 10. Prophylaxis: He appears to have greatly reduced mobility at present. He walked 80 feet with Physical Therapy yesterday, but this morning in this hospital he declined to ambulate with steps. I will initiate enoxaparin 40 mg subcutaneous q. day starting today until his mobility considerably improves as prophylaxis against deep venous thrombosis. 11. Followup: He will see neurologist, Dr. Osiel Martell, in followup after his discharge from inpatient rehabilitation. /[id number]/MODL MTDD
[2018-08-19] MEDS: GABAPENTIN 300 MG CAP PO SCH (21:10)
[2018-08-20] MEDS: POLYETHYLENE GLYCOL 3350 17 GM PKT PO SCH (08:21)
[2018-08-20] MEDS: SENNOSIDES 1 TAB PO SCH (08:22)
[2018-08-20] MEDS: PRAVASTATIN SODIUM 40 MG TAB PO SCH (08:24)
[2018-08-20] MEDS: ASPIRIN EC 81 MG TAB PO SCH (08:29)
[2018-08-20] MEDS: CYANO/VITAMIN B12 1000 MCG TAB PO SCH (08:29)
[2018-08-20] MEDS: MULTIVITAMINS 1 EACH TAB PO SCH (08:30)
[2018-08-20] MEDS: LISINOPRIL 20 MG TAB PO SCH (08:30)
[2018-08-20] MEDS: CARBIDOPA/LEVODOPA 25 MG/100 MG TAB PO SCH ×3 (08:31→21:29)
[2018-08-20] MEDS: ENOXAPARIN 40 MG/0.4 ML SYR SC SCH (08:54)
[2018-08-20 08:55] LABS: PLATELET COUNT 225 10^3/uL (150-400)
[2018-08-20] MEDS ORDERED: MAG HYDROX/AL HYDROX/SIMETH 30 ML UDCUP PO PRN (11:12)
--- NOTE | 2018-08-20 12:24 | SOAPPROG ---
SOAP Progress Note Assessment/Plan: Assessment: Parkinsonism, possibly vascular: He was initiated on Sinemet. This will be continued and will consider titration once he has been assessed by Therapies. He will have PT and OT to optimize his mobility and activities of daily living. Hypophonia and possible cognitive impairment: Evaluation and treatment per Speech and Language Pathology. Cerebrovascular disease: Continue secondary prevention with aspirin, blood pressure control, and lipid control. Atrial fibrillation on EKG, 08/19/2018. CHADS2-Vasc score is 5, corresponding to a 10% risk per year of stroke, TIA or thromboembolism. HAS-BLED score is 2, corresponding to a 2-4% risk per year of major bleed. * Discussed with patient's son and txwhtffe-[id number]-akl, 08/20/2018. Doubtful that he has capacity to understand his medical conditions and make appropriate decisions. Concern regarding fall risk and risk for intracranial hemorrhage. Will defer decision regarding anticoagulation to discussion with primary care provider after discharge from inpatient rehabilitation. Continue aspirin. Hypertension: He has had the addition of amlodipine in the hospital and was previously on lisinopril. He had elevated blood pressures in the hospital as high as 164/95. * Not orthostatic. * Continue amlodipine 2.5 mg q.day and lisinopril 20 mg q.day. Continue to monitor. Peripheral neuropathy, for which, he has been prescribed gabapentin. Will have to determine further history regarding whether this has been helpful and exactly what it is prescribed for. Rhabdomyolysis appears to have resolved: He had mild hypokalemia yesterday. We will check BMP in the morning to ensure normal renal function. Leukocytosis on the day of admission: * Resolved on CBC 08/20/2018. History of hepatitis C: Tested with hepatitis C antibody test reactive on 2017. On 11/28/2017, HCV RNA was undetectable with serum. Prophylaxis: He appears to have greatly reduced mobility at present. He walked 80 feet with Physical Therapy yesterday, but this morning in this hospital he declined to ambulate with steps. I will initiate enoxaparin 40 mg subcutaneous q. day starting today until his mobility considerably improves as prophylaxis against deep venous thrombosis. Followup: He will see neurologist, Dr. Osiel Martell, in followup after his discharge from inpatient rehabilitation. 08/20/18 12:25 Subjective: No complaints. Slept well. Not in pain. Wants to be sure he has appropriate laxatives for bowel movements and he requests Maalox. Objective: Vital Signs Temp Pulse Resp BP Pulse Ox 36.5 C 74 14 111/69 94 08/20/18 07:15 08/20/18 10:12 08/20/18 08:26 08/20/18 10:12 08/20/18 08:26 Laboratory Results 08/20/18 05:30 08/20/18 05:30 08/19/18 08/20/18 08/21/18 05:59 05:59 05:59 Intake Total 500 240 Output Total 450 0 Balance 50 240 - Time Spent With Patient Time Spent With Patient: Greater than 35 min floor time today, including discussion with patient's son and [id number] regarding treatment of atrial fibrillation. Physical Exam - Physical Exam General Appearance: WD/WN, alert, no apparent distress Respiratory: normal breath sounds, No crackles, No rhonchi, No wheezing Cardiac/Chest: irregularly irregular, No edema, No diastolic murmur, No systolic murmur Skin: normal color, warm/dry Neuro/Psych: alert, normal mood/affect, speech abnormalities (Hypophonia) ICD10 Worksheet Patient Problems: Problems Problem Status Onset Constipation Acute Dehydration Acute Generalized weakness Acute Near syncope Acute Parkinsonian syndrome Acute Rhabdomyolysis Acute
--- NOTE | 2018-08-20 14:14 | PDOREHIP ---
Admission [facility] - Admission - 3 Day Assessment Period Admission Date/Day 1: 08/19/18 Day 2: 08/20/18 Day 3: 08/21/18 - Active Diagnoses Comorbidities and Co-existing Conditions at Admission: 28334. None of the Above - Skin Conditions Unhealed Pressure Ulcer (1 or more/Stage 1 or >)-Admission: 0. No # Stage 1 Pressure Ulcers-Admission: 0 # Stage 2 Pressure Ulcers-Admission: 0 # Stage 3 Pressure Ulcers-Admission: 0 # Stage 4 Pressure Ulcers-Admission: 0 # Unstageable Pressure Ulcers (Non-remove Dress)-Admission: 0 # Unstageable Pressure Ulcers (Slough/Eschar)-Admission: 0 # Unstageable Pressure Ulcers (Deep Tissue Injury)-Admission: 0
[2018-08-20] MEDS: GABAPENTIN 300 MG CAP PO SCH (19:27)
[2018-08-21] MEDS: CARBIDOPA/LEVODOPA 25 MG/100 MG TAB PO SCH ×3 (06:46→21:27)
[2018-08-21] MEDS: ENOXAPARIN 40 MG/0.4 ML SYR SC SCH (07:27)
[2018-08-21] MEDS: POLYETHYLENE GLYCOL 3350 17 GM PKT PO SCH (08:30)
[2018-08-21] MEDS: ASPIRIN EC 81 MG TAB PO SCH (08:35)
[2018-08-21] MEDS: CYANO/VITAMIN B12 1000 MCG TAB PO SCH (08:36)
[2018-08-21] MEDS: LISINOPRIL 20 MG TAB PO SCH (08:37)
[2018-08-21] MEDS: MULTIVITAMINS 1 EACH TAB PO SCH (08:37)
[2018-08-21] MEDS: PRAVASTATIN SODIUM 40 MG TAB PO SCH (08:38)
[2018-08-21] MEDS: SENNOSIDES 1 TAB PO SCH (08:38)
--- NOTE | 2018-08-21 09:56 | CPEKG ---
Test Reason : OPEN Blood Pressure : / mmHG Vent. Rate : 088 BPM Atrial Rate : 080 BPM P-R Int : 154 ms QRS Dur : 076 ms QT Int : 368 ms P-R-T Axes : 000 027 062 degrees QTc Int : 446 ms ATRIAL FIBRILLATION, V-RATE 64-109 Atrial fibrillation is new in comparison to prior Confirmed by José Luis Ceja ([id number]) on 08/21/2018 9:55:43 AM Referred By: Himanshu Schneider Confirmed By:José Luis Ceja
--- NOTE | 2018-08-21 10:39 | SOAPPROG ---
SOAP Progress Note Assessment/Plan: Assessment: Parkinsonism, possibly vascular: He was initiated on Sinemet half tablet 3 times a day. Increased to 1 tablet 3 times a day starting 08/21/2018.. He will have PT and OT to optimize his mobility and activities of daily living. Hypophonia and cognitive impairment: * 08/23 on the [facility] mental status exam. * Continue treatment per Speech and Language Pathology. Cerebrovascular disease: Continue secondary prevention with aspirin, blood pressure control, and lipid control. Atrial fibrillation on EKG, 08/19/2018. CHADS2-Vasc score is 5, corresponding to a 10% risk per year of stroke, TIA or thromboembolism. HAS-BLED score is 2, corresponding to a 2-4% risk per year of major bleed. * Discussed with patient's son and [id number], 08/20/2018. Doubtful that he has capacity to understand his medical conditions and make appropriate decisions. Concern regarding fall risk and risk for intracranial hemorrhage. Will defer decision regarding anticoagulation to discussion with primary care provider after discharge from inpatient rehabilitation. Continue aspirin. * Heart rhythm is regular on exam 08/21/2018. Hypertension: He has had the addition of amlodipine in the hospital and was previously on lisinopril. He had elevated blood pressures in the hospital as high as 164/95. * Not orthostatic. * Continue amlodipine 2.5 mg q.day and lisinopril 20 mg q.day. Continue to monitor. Peripheral neuropathy, for which, he has been prescribed gabapentin. Will have to determine further history regarding whether this has been helpful and exactly what it is prescribed for. Rhabdomyolysis appears to have resolved: He had mild hypokalemia yesterday. We will check BMP in the morning to ensure normal renal function. Leukocytosis on the day of admission: * Resolved on CBC 08/20/2018. History of hepatitis C: Tested with hepatitis C antibody test reactive on 2017. On 11/28/2017, HCV RNA was undetectable with serum. Prophylaxis: He appears to have greatly reduced mobility at present. He walked 80 feet with Physical Therapy yesterday, but this morning in this hospital he declined to ambulate with steps. Continue enoxaparin 40 mg subcutaneous q. day starting today until his mobility considerably improves as prophylaxis against deep venous thrombosis. Followup: He will see neurologist, Dr. Osiel Martell, in followup after his discharge from inpatient rehabilitation. 08/21/18 10:32 Subjective: No complaints. Nursing reports he did not sleep well and called multiple times overnight nurse was concerned that he was hungry because of issues with menu selections during the day but he would not eat. He is way regarding events of the night. Objective: Vital Signs Temp Pulse Resp BP Pulse Ox 36.8 C 73 16 125/72 H 93 08/21/18 05:27 08/21/18 08:33 08/21/18 05:27 08/21/18 08:33 08/21/18 05:27 Laboratory Results 08/20/18 05:30 08/20/18 05:30 08/20/18 08/21/18 08/22/18 05:59 05:59 05:59 Intake Total 500 940 Output Total 450 1350 Balance 50 -410 Physical Exam - Physical Exam General Appearance: WD/WN, alert, no apparent distress Respiratory: normal breath sounds, No crackles, No rhonchi, No wheezing Cardiac/Chest: regular rate, rhythm, No edema, No diastolic murmur, No systolic murmur Skin: normal color, warm/dry Neuro/Psych: alert, normal mood/affect, speech abnormalities (Hypophonia), other (Bradykinesia, masked faces.) ICD10 Worksheet Patient Problems: Problems Problem Status Onset Constipation Acute Dehydration Acute Generalized weakness Acute Near syncope Acute Parkinsonian syndrome Acute Rhabdomyolysis Acute
[2018-08-21] MEDS: GABAPENTIN 300 MG CAP PO SCH (20:03)
[2018-08-21] MEDS: MELATONIN 3 MG TAB PO SCH (21:27)
[2018-08-22] MEDS: CARBIDOPA/LEVODOPA 25 MG/100 MG TAB PO SCH ×3 (07:14→21:53)
[2018-08-22] MEDS: MULTIVITAMINS 1 EACH TAB PO SCH (08:55)
[2018-08-22] MEDS: ASPIRIN EC 81 MG TAB PO SCH (08:55)
[2018-08-22] MEDS: ENOXAPARIN 40 MG/0.4 ML SYR SC SCH (08:55)
[2018-08-22] MEDS: LISINOPRIL 20 MG TAB PO SCH (08:55)
[2018-08-22] MEDS: PRAVASTATIN SODIUM 40 MG TAB PO SCH (08:55)
[2018-08-22] MEDS: SENNOSIDES 1 TAB PO SCH (08:55)
[2018-08-22] MEDS: POLYETHYLENE GLYCOL 3350 17 GM PKT PO SCH (08:56)
[2018-08-22] MEDS: CYANO/VITAMIN B12 1000 MCG TAB PO SCH (09:01)
--- NOTE | 2018-08-22 11:52 | SOAPPROG ---
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 Increased to 1 tablet three times daily on 08/21/2018 with improvement in movements. * Initial functional independence measure is 60 on 08/22/2018. Contact guard assist for transfers. Ambulated 200 ft contact guard assist to standby assist with front wheeled walker and shuffling gait. He had episodes of freezing yesterday, but not today, 08/22/2018. Bed mobility requires supervision and cues to persist. Sit to stand requires contact guard assist to standby assist. Upper body dressing is done with setup, lower body requires minimal assist. Contact guard assist for toileting. Bathing was done seated with standby assist. * Continue PT and OT to optimize his mobility and activities of daily living. * Consider further titration of Sinemet in several days to 1 week. Hypophonia and cognitive impairment: * Scored 3/30 on the SLUMS. Hope for improvement. * Continue treatment per Speech and Language Pathology. Cerebrovascular disease: Continue secondary prevention with aspirin, blood pressure control, and lipid control. Atrial fibrillation on EKG, 08/19/2018. CHADS2-Vasc score is 5, corresponding to a 10% risk per year of stroke, TIA or thromboembolism. HAS-BLED score is 2, corresponding to a 2-4% risk per year of major bleed. * Discussed with patient's son and [id number], 08/20/2018. Doubtful that he has capacity to understand his medical conditions and make appropriate decisions. Concern regarding fall risk and risk for intracranial hemorrhage. Will defer decision regarding anticoagulation to discussion with primary care provider after discharge from inpatient rehabilitation. Continue aspirin. Hypertension: He has had the addition of amlodipine 2.5 mg daily in the hospital and was continued on his home dose of lisinopril 20 m,g daily. He had elevated blood pressures in the hospital as high as 164/95. * He is orthostatic, possibly due to titration of Sinemet. Encourage PO hydration. * Discontinue amlodipine 2.5 mg q.day starting 08/23/2018. Continue lisinopril 20 mg q.day but hold for standing systolic blood pressure less than 100. Continue to monitor. Peripheral neuropathy, for which, he has been prescribed gabapentin. Will have to determine further history regarding whether this has been helpful and exactly what it is prescribed for. Rhabdomyolysis appears to have resolved: He had mild hypokalemia yesterday. We will check BMP in the morning to ensure normal renal function. Leukocytosis on the day of admission: * Resolved on CBC 08/20/2018. History of hepatitis C: Tested with hepatitis C antibody test reactive on 2017. On 11/28/2017, HCV RNA was undetectable with serum. Prophylaxis: Mobility is improving. Will continue enoxaparin until he is consistently walking 150 ft or more 3 times a day and ambulating to meals, as prophylaxis against deep venous thrombosis. DISPOSITION: Attended staffing, 15 min, 08/22/2018. Discussed with case management, dietitian, nursing, PT, OT, INSOLVENCY PRACTITIONER. Goal is to return to assisted living facility but [facility] does not provide a high level of assistance. He is making initial progress especially with titration of Sinemet. He may still require a higher level of care. Expect 15 day length of stay with goal discharge 09/03/2018. Followup: He will see neurologist, Dr. Osiel Martell, in followup after his discharge from inpatient rehabilitation. 08/22/18 11:53 Subjective: No night. Slept well. Acknowledges occasional lightheadedness with standing though on further discussion it seems difficult to distinguish this from episodes of freezing in his gait. Objective: Vital Signs Temp Pulse Resp BP Pulse Ox 36.4 C 63 15 92/62 L 93 08/22/18 07:53 08/22/18 07:53 08/22/18 07:53 08/22/18 08:55 08/22/18 07:53 Laboratory Results 08/20/18 05:30 08/20/18 05:30 08/21/18 08/22/18 08/23/18 05:59 05:59 05:59 Intake Total 940 750 Output Total 1350 1050 200 Balance -410 -300 -200 - Time Spent With Patient Time Spent With Patient: Greater than 35 min floor time today, including more than 50% of time in coordination of care during staffing meeting, and counseling patient. Physical Exam - Physical Exam General Appearance: WD/WN, alert, no apparent distress Respiratory: No respiratory distress, No accessory muscle use Skin: normal color, warm/dry Neuro/Psych: alert, normal mood/affect, abnormal gait (Narrow base, short steps , with front wheeled walker.), speech abnormalities (Hypophonia) ICD10 Worksheet Patient Problems: Problems Problem Status Onset Constipation Acute Dehydration Acute Generalized weakness Acute Near syncope Acute Parkinsonian syndrome Acute Rhabdomyolysis Acute
[2018-08-22] MEDS: MELATONIN 3 MG TAB PO SCH (20:45)
[2018-08-22] MEDS: GABAPENTIN 300 MG CAP PO SCH (20:46)
[2018-08-23] MEDS: PRAVASTATIN SODIUM 40 MG TAB PO SCH (08:07)
[2018-08-23] MEDS: MULTIVITAMINS 1 EACH TAB PO SCH (08:07)
[2018-08-23] MEDS: LISINOPRIL 20 MG TAB PO SCH (08:07)
[2018-08-23] MEDS: SENNOSIDES 1 TAB PO SCH (08:07)
[2018-08-23] MEDS: POLYETHYLENE GLYCOL 3350 17 GM PKT PO SCH (08:07)
[2018-08-23] MEDS: CYANO/VITAMIN B12 1000 MCG TAB PO SCH (08:07)
[2018-08-23] MEDS: ENOXAPARIN 40 MG/0.4 ML SYR SC SCH (08:07)
[2018-08-23] MEDS: CARBIDOPA/LEVODOPA 25 MG/100 MG TAB PO SCH ×3 (08:07→21:35)
[2018-08-23] MEDS: ASPIRIN EC 81 MG TAB PO SCH (08:07)
--- NOTE | 2018-08-23 10:28 | SOAPPROG ---
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 Increased to 1 tablet three times daily on 08/21/2018 with improvement in movements. * Initial functional independence measure is 60 on 08/22/2018. Contact guard assist for transfers. Ambulated 200 ft contact guard assist to standby assist with front wheeled walker and shuffling gait. He had episodes of freezing 2018, but not 08/22/2018. Bed mobility requires supervision and cues to persist. Sit to stand requires contact guard assist to standby assist. Upper body dressing is done with setup, lower body requires minimal assist. Contact guard assist for toileting. Bathing was done seated with standby assist. * Continue PT and OT to optimize his mobility and activities of daily living. * Consider further titration of Sinemet in several days to 1 week from 2018. Hypophonia and cognitive impairment: * Scored 3/30 on the SLUMS. Hope for improvement. * Continue treatment per Speech and Language Pathology. Cerebrovascular disease: Continue secondary prevention with aspirin, blood pressure control, and lipid control. Atrial fibrillation on EKG, 08/19/2018. CHADS2-Vasc score is 5, corresponding to a 10% risk per year of stroke, TIA or thromboembolism. HAS-BLED score is 2, corresponding to a 2-4% risk per year of major bleed. * Discussed with patient's son and [id number], 08/20/2018. Doubtful that he has capacity to understand his medical conditions and make appropriate decisions. Concern regarding fall risk and risk for intracranial hemorrhage. Will defer decision regarding anticoagulation to discussion with primary care provider after discharge from inpatient rehabilitation. Continue aspirin. Hypertension: He has had the addition of amlodipine 2.5 mg daily in the hospital and was continued on his home dose of lisinopril 20 m,g daily. He had elevated blood pressures in the hospital as high as 164/95. * He is orthostatic, possibly due to titration of Sinemet. Encourage PO hydration. * Discontinue amlodipine 2.5 mg q.day starting 08/23/2018. Continue lisinopril 20 mg q.day but hold for standing systolic blood pressure less than 100. Continue to monitor. Peripheral neuropathy, for which, he has been prescribed gabapentin. Will have to determine further history regarding whether this has been helpful and exactly what it is prescribed for. Rhabdomyolysis appears to have resolved: He had mild hypokalemia yesterday. We will check BMP in the morning to ensure normal renal function. Leukocytosis on the day of admission: * Resolved on CBC 08/20/2018. History of hepatitis C: Tested with hepatitis C antibody test reactive on 2017. On 11/28/2017, HCV RNA was undetectable with serum. Prophylaxis: Mobility is improving. Will continue enoxaparin until he is consistently walking 150 ft or more 3 times a day and ambulating to meals, as prophylaxis against deep venous thrombosis. DISPOSITION: Attended staffing, 15 min, 08/22/2018. Discussed with case management, dietitian, nursing, PT, OT, [employer] SUPERINTENDENT. Goal is to return to assisted living facility but [facility] does not provide a high level of assistance. He is making initial progress especially with titration of Sinemet. He may still require a higher level of care. Expect 15 day length of stay with goal discharge 09/03/2018. Followup: He will see neurologist, Dr. Osiel Martell, in followup after his discharge from inpatient rehabilitation. 08/23/18 10:27 Subjective: No complaints. Slept well. Not in pain. No cough or dyspnea, no fevers or chills. Feels he is moving better with increased Sinemet. Objective: Vital Signs Temp Pulse Resp BP Pulse Ox 36.4 C 66 18 114/75 94 08/23/18 07:50 08/23/18 07:50 08/23/18 07:50 08/23/18 08:07 08/23/18 07:50 Laboratory Results 08/20/18 05:30 08/20/18 05:30 08/22/18 08/23/18 08/24/18 05:59 05:59 05:59 Intake Total 750 665 Output Total 1050 1400 Balance -300 -735 Physical Exam - Physical Exam General Appearance: WD/WN, alert, no apparent distress Respiratory: No respiratory distress, No accessory muscle use Skin: normal color, warm/dry Neuro/Psych: alert, normal mood/affect, abnormal gait (Slow pace, narrow based, short steps. Reduced forward swing of left leg.), speech abnormalities ( Hypophonic) ICD10 Worksheet Patient Problems: Problems Problem Status Onset Constipation Acute Dehydration Acute Generalized weakness Acute Near syncope Acute Parkinsonian syndrome Acute Rhabdomyolysis Acute
[2018-08-23] MEDS: GABAPENTIN 300 MG CAP PO SCH (20:36)
[2018-08-23] MEDS: MELATONIN 3 MG TAB PO SCH (20:36)
[2018-08-24] MEDS: ASPIRIN EC 81 MG TAB PO SCH (08:08)
[2018-08-24] MEDS: PRAVASTATIN SODIUM 40 MG TAB PO SCH (08:08)
[2018-08-24] MEDS: CARBIDOPA/LEVODOPA 25 MG/100 MG TAB PO SCH ×3 (08:08→21:25)
[2018-08-24] MEDS: POLYETHYLENE GLYCOL 3350 17 GM PKT PO SCH (08:08)
[2018-08-24] MEDS: SENNOSIDES 1 TAB PO SCH (08:08)
[2018-08-24] MEDS: MULTIVITAMINS 1 EACH TAB PO SCH (08:09)
[2018-08-24] MEDS: ENOXAPARIN 40 MG/0.4 ML SYR SC SCH (08:09)
[2018-08-24] MEDS: CYANO/VITAMIN B12 1000 MCG TAB PO SCH (08:09)
[2018-08-24] MEDS: LISINOPRIL 20 MG TAB PO SCH (08:09)
--- NOTE | 2018-08-24 11:19 | SOAPPROG ---
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 Increased to 1 tablet three times daily on 08/21/2018 with improvement in movements. * Initial functional independence measure is 60 on 08/22/2018. Contact guard assist for transfers. Ambulated 200 ft contact guard assist to standby assist with front wheeled walker and shuffling gait. He had episodes of freezing 2018, but not 08/22/2018. Bed mobility requires supervision and cues to persist. Sit to stand requires contact guard assist to standby assist. Upper body dressing is done with setup, lower body requires minimal assist. Contact guard assist for toileting. Bathing was done seated with standby assist. * Continue PT and OT to optimize his mobility and activities of daily living. * Consider further titration of Sinemet in several days to 1 week from 2018. Hypophonia and cognitive impairment: * Scored 3/30 on the SLUMS. Hope for improvement. * Continue treatment per Speech and Language Pathology. Cerebrovascular disease: Continue secondary prevention with aspirin, blood pressure control, and lipid control. Question of UTI symptoms. Nurse reports observing frequent voiding of small quantities. Patient is without complaint, . Will not order urinalysis at present. Atrial fibrillation on EKG, 08/19/2018. CHADS2-Vasc score is 5, corresponding to a 10% risk per year of stroke, TIA or thromboembolism. HAS-BLED score is 2, corresponding to a 2-4% risk per year of major bleed. * Discussed with patient's son and [id number], 08/20/2018. Doubtful that he has capacity to understand his medical conditions and make appropriate decisions. Concern regarding fall risk and risk for intracranial hemorrhage. Will defer decision regarding anticoagulation to discussion with primary care provider after discharge from inpatient rehabilitation. Continue aspirin. Hypertension: He has had the addition of amlodipine 2.5 mg daily in the hospital and was continued on his home dose of lisinopril 20 m,g daily. He had elevated blood pressures in the hospital as high as 164/95. * He is orthostatic, possibly due to titration of Sinemet. Encourage PO hydration. * Discontinue amlodipine 2.5 mg q.day starting 08/23/2018. Continue lisinopril 20 mg q.day but hold for standing systolic blood pressure less than 100. Continue to monitor. Peripheral neuropathy, for which, he has been prescribed gabapentin. Will have to determine further history regarding whether this has been helpful and exactly what it is prescribed for. Rhabdomyolysis appears to have resolved: He had mild hypokalemia yesterday. We will check BMP in the morning to ensure normal renal function. Leukocytosis on the day of admission: * Resolved on CBC 08/20/2018. History of hepatitis C: Tested with hepatitis C antibody test reactive on 2017. On 11/28/2017, HCV RNA was undetectable with serum. Prophylaxis: Mobility is improving. Will continue enoxaparin until he is consistently walking 150 ft or more 3 times a day and ambulating to meals, as prophylaxis against deep venous thrombosis. DISPOSITION: Attended staffing, 15 min, 08/22/2018. Discussed with case management, dietitian, nursing, PT, OT, HAND METHOD LASTING MACHINE OPERATOR. Goal is to return to assisted living facility but [facility] does not provide a high level of assistance. He is making initial progress especially with titration of Sinemet. He may still require a higher level of care. Expect 15 day length of stay with goal discharge 09/03/2018. Followup: He will see neurologist, Dr. Osiel Martell, in followup after his discharge from inpatient rehabilitation. 08/23/18 10:27 08/24/18 11:16 Subjective: Nursing reports frequent small voids overnight though no retention. He is without complaints and does not seem to feel that there was anything unusual regarding his urination. No fevers or chills. No dysuria. Objective: Vital Signs Temp Pulse Resp BP Pulse Ox 36.6 C 70 16 125/74 H 93 08/24/18 05:16 08/24/18 05:16 08/24/18 05:16 08/24/18 08:09 08/24/18 05:16 Laboratory Results 08/20/18 05:30 08/20/18 05:30 08/23/18 08/24/18 08/25/18 05:59 05:59 05:59 Intake Total 665 870 240 Output Total 1400 1250 200 Balance -735 -380 40 Physical Exam - Physical Exam General Appearance: WD/WN, alert, no apparent distress Respiratory: No respiratory distress, No accessory muscle use Cardiac/Chest: No edema Skin: normal color, warm/dry Neuro/Psych: alert, normal mood/affect, abnormal gait (With front wheeled walker , very short steps, slow.) ICD10 Worksheet Patient Problems: Problems Problem Status Onset Constipation Acute Dehydration Acute Generalized weakness Acute Near syncope Acute Parkinsonian syndrome Acute Rhabdomyolysis Acute
[2018-08-24] MEDS: GABAPENTIN 300 MG CAP PO SCH (19:53)
[2018-08-24] MEDS: MELATONIN 3 MG TAB PO SCH (20:07)
[2018-08-25] MEDS: CARBIDOPA/LEVODOPA 25 MG/100 MG TAB PO SCH ×3 (07:33→22:07)
[2018-08-25] MEDS: MULTIVITAMINS 1 EACH TAB PO SCH (09:01)
[2018-08-25] MEDS: SENNOSIDES 1 TAB PO SCH (09:01)
[2018-08-25] MEDS: ASPIRIN EC 81 MG TAB PO SCH (09:01)
[2018-08-25] MEDS: ENOXAPARIN 40 MG/0.4 ML SYR SC SCH (09:02)
[2018-08-25] MEDS: PRAVASTATIN SODIUM 40 MG TAB PO SCH (09:02)
[2018-08-25] MEDS: CYANO/VITAMIN B12 1000 MCG TAB PO SCH (09:02)
[2018-08-25] MEDS: POLYETHYLENE GLYCOL 3350 17 GM PKT PO SCH (09:02)
[2018-08-25] MEDS: LISINOPRIL 20 MG TAB PO SCH (09:05)
--- NOTE | 2018-08-25 10:24 | SOAPPROG ---
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 Increased to 1 tablet three times daily on 08/21/2018 with improvement in movements. * Initial functional independence measure is 60 on 08/22/2018. Contact guard assist for transfers. Ambulated 200 ft contact guard assist to standby assist with front wheeled walker and shuffling gait. He had episodes of freezing 2018, but not 08/22/2018. Bed mobility requires supervision and cues to persist. Sit to stand requires contact guard assist to standby assist. Upper body dressing is done with setup, lower body requires minimal assist. Contact guard assist for toileting. Bathing was done seated with standby assist. * Continue PT and OT to optimize his mobility and activities of daily living. * Consider further titration of Sinemet in several days to 1 week from 2018. Hypophonia and cognitive impairment: * Scored 3/30 on the SLUMS. Hope for improvement. * Continue treatment per Speech and Language Pathology. Cerebrovascular disease: Continue secondary prevention with aspirin, blood pressure control, and lipid control. Visual impairment per OT testing. 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 Visual acuity less than 20/100 both eyes, 20/125 left eye, 20/160 right eye. * Referral to Ophthalmology or Neuro-Ophthalmology after discharge. Question of UTI symptoms. Nurse reports observing frequent voiding of small quantities. Patient is without complaint, . Will not order urinalysis at present. Atrial fibrillation on EKG, 08/19/2018. CHADS2-Vasc score is 5, corresponding to a 10% risk per year of stroke, TIA or thromboembolism. HAS-BLED score is 2, corresponding to a 2-4% risk per year of major bleed. * Discussed with patient's son and [id number], 08/20/2018. Doubtful that he has capacity to understand his medical conditions and make appropriate decisions. Concern regarding fall risk and risk for intracranial hemorrhage. Will defer decision regarding anticoagulation to discussion with primary care provider after discharge from inpatient rehabilitation. Continue aspirin. Hypertension: He has had the addition of amlodipine 2.5 mg daily in the hospital and was continued on his home dose of lisinopril 20 m,g daily. He had elevated blood pressures in the hospital as high as 164/95. * He is orthostatic, possibly due to titration of Sinemet. Encourage PO hydration. * Discontinue amlodipine 2.5 mg q.day starting 08/23/2018. Continue lisinopril 20 mg q.day but hold for standing systolic blood pressure less than 100. Continue to monitor. Peripheral neuropathy, for which, he has been prescribed gabapentin. Will have to determine further history regarding whether this has been helpful and exactly what it is prescribed for. Rhabdomyolysis appears to have resolved: He had mild hypokalemia in the hospital. * BMP 08/20/2018 with normal potassium, mild dehydration.. Leukocytosis on the day of admission: * Resolved on CBC 08/20/2018. History of hepatitis C: Tested with hepatitis C antibody test reactive on 2017. On 11/28/2017, HCV RNA was undetectable with serum. Prophylaxis: Mobility is improving. Will continue enoxaparin until he is consistently walking 150 ft or more 3 times a day and ambulating to meals, as prophylaxis against deep venous thrombosis. DISPOSITION: Attended staffing, 15 min, 08/22/2018. Discussed with case management, dietitian, nursing, PT, OT, SALES OPERATIONS COORDINATOR. Goal is to return to assisted living facility but [facility] does not provide a high level of assistance. He is making initial progress especially with titration of Sinemet. He may still require a higher level of care. Expect 15 day length of stay with goal discharge 09/03/2018. Followup: He will see neurologist, Dr. Osiel Martell, in followup after his discharge from inpatient rehabilitation. 08/25/18 09:57 Subjective: No complaints. Slept well. Not in pain. No cough or dyspnea. No fevers or chills. Objective: Vital Signs Temp Pulse Resp BP Pulse Ox 36.3 C 71 16 116/72 93 08/25/18 06:29 08/25/18 09:04 08/25/18 06:29 08/25/18 09:05 08/25/18 06:29 Laboratory Results 08/20/18 05:30 08/20/18 05:30 08/24/18 08/25/18 08/26/18 05:59 05:59 05:59 Intake Total 870 950 Output Total 1250 820 Balance -380 130 Physical Exam - Physical Exam General Appearance: WD/WN, alert, no apparent distress Respiratory: normal breath sounds, No crackles, No rhonchi, No wheezing Cardiac/Chest: regular rate, rhythm, No edema, No diastolic murmur, No systolic murmur Skin: normal color, warm/dry Neuro/Psych: alert, normal mood/affect, speech abnormalities (Hypophonia), other (Increased facial expression today.) ICD10 Worksheet Patient Problems: Problems Problem Status Onset Constipation Acute Dehydration Acute Generalized weakness Acute Near syncope Acute Parkinsonian syndrome Acute Rhabdomyolysis Acute
[2018-08-25] MEDS: GABAPENTIN 300 MG CAP PO SCH (19:15)
[2018-08-25] MEDS: MELATONIN 3 MG TAB PO SCH (22:07)
[2018-08-26] MEDS: CARBIDOPA/LEVODOPA 25 MG/100 MG TAB PO SCH ×3 (07:53→21:00)
[2018-08-26] MEDS: PRAVASTATIN SODIUM 40 MG TAB PO SCH (07:54)
[2018-08-26] MEDS: SENNOSIDES 1 TAB PO SCH (07:54)
[2018-08-26] MEDS: ENOXAPARIN 40 MG/0.4 ML SYR SC SCH (07:54)
[2018-08-26] MEDS: MULTIVITAMINS 1 EACH TAB PO SCH (07:54)
[2018-08-26] MEDS: CYANO/VITAMIN B12 1000 MCG TAB PO SCH (07:54)
[2018-08-26] MEDS: ASPIRIN EC 81 MG TAB PO SCH (07:54)
[2018-08-26] MEDS: LISINOPRIL 20 MG TAB PO SCH (07:55)
[2018-08-26] MEDS: POLYETHYLENE GLYCOL 3350 17 GM PKT PO SCH (07:56)
--- NOTE | 2018-08-26 13:15 | SOAPPROG ---
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 Increased to 1 tablet three times daily on 08/21/2018 with improvement in movements. * Initial functional independence measure is 60 on 08/22/2018. Contact guard assist for transfers. Ambulated 200 ft contact guard assist to standby assist with front wheeled walker and shuffling gait. He had episodes of freezing 2018, but not 08/22/2018. Bed mobility requires supervision and cues to persist. Sit to stand requires contact guard assist to standby assist. Upper body dressing is done with setup, lower body requires minimal assist. Contact guard assist for toileting. Bathing was done seated with standby assist. * Continue PT and OT to optimize his mobility and activities of daily living. * Consider further titration of Sinemet in several days to 1 week from 2018. Hypophonia and cognitive impairment: * Scored 3/30 on the SLUMS. Hope for improvement. * Continue treatment per Speech and Language Pathology. Cerebrovascular disease: Continue secondary prevention with aspirin, blood pressure control, and lipid control. Visual impairment per OT testing. 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 Visual acuity less than 20/100 both eyes, 20/125 left eye, 20/160 right eye. * Referral to Ophthalmology or Neuro-Ophthalmology after discharge. Question of UTI symptoms. Nurse reports observing frequent voiding of small quantities. Patient is without complaint, . Will not order urinalysis at present. Atrial fibrillation on EKG, 08/19/2018. CHADS2-Vasc score is 5, corresponding to a 10% risk per year of stroke, TIA or thromboembolism. HAS-BLED score is 2, corresponding to a 2-4% risk per year of major bleed. * Discussed with patient's son and [id number], 08/20/2018. Doubtful that he has capacity to understand his medical conditions and make appropriate decisions. Concern regarding fall risk and risk for intracranial hemorrhage. Will defer decision regarding anticoagulation to discussion with primary care provider after discharge from inpatient rehabilitation. Continue aspirin. Hypertension: He has had the addition of amlodipine 2.5 mg daily in the hospital and was continued on his home dose of lisinopril 20 m,g daily. He had elevated blood pressures in the hospital as high as 164/95. * He is orthostatic, possibly due to titration of Sinemet. Encourage PO hydration. * Discontinue amlodipine 2.5 mg q.day starting 08/23/2018. Continue lisinopril 20 mg q.day but hold for standing systolic blood pressure less than 100. Continue to monitor. * Has 16 mmHg systolic blood pressure drop and 7 beat per minute heart rate increase with orthostatic position changes, 08/26/2018, but no symptoms. Peripheral neuropathy, for which, he has been prescribed gabapentin. Will have to determine further history regarding whether this has been helpful and exactly what it is prescribed for. Rhabdomyolysis appears to have resolved: He had mild hypokalemia in the hospital. * BMP 08/20/2018 with normal potassium, mild dehydration.. Leukocytosis on the day of admission: * Resolved on CBC 08/20/2018. History of hepatitis C: Tested with hepatitis C antibody test reactive on 2017. On 11/28/2017, HCV RNA was undetectable with serum. Prophylaxis: Mobility is improving. Will continue enoxaparin until he is consistently walking 150 ft or more 3 times a day and ambulating to meals, as prophylaxis against deep venous thrombosis. DISPOSITION: Attended staffing, 15 min, 08/22/2018. Discussed with case management, dietitian, nursing, PT, OT, BUSINESS DEVELOPMENT MANAGER. Goal is to return to assisted living facility but [facility] does not provide a high level of assistance. He is making initial progress especially with titration of Sinemet. He may still require a higher level of care. Expect 15 day length of stay with goal discharge 09/03/2018. Followup: He will see neurologist, Dr. Osiel Martell, in followup after his discharge from inpatient rehabilitation. 08/26/18 13:10 Subjective: No complaints. Sleeping well. No cough or dyspnea, no fever or chills. Objective: Vital Signs Temp Pulse Resp BP Pulse Ox 36.4 C 65 15 106/69 93 08/26/18 07:19 08/26/18 07:19 08/26/18 07:19 08/26/18 07:55 08/26/18 07:19 Laboratory Results 08/20/18 05:30 08/20/18 05:30 08/25/18 08/26/18 08/27/18 05:59 05:59 05:59 Intake Total 950 558 Output Total 820 75 Balance 130 483 Physical Exam - Physical Exam General Appearance: WD/WN, alert, no apparent distress Respiratory: No respiratory distress, No accessory muscle use Skin: normal color, warm/dry Neuro/Psych: alert, normal mood/affect, abnormal gait (Narrow base, short steps , slow, with front wheeled walker.), speech abnormalities (Hypophonia) ICD10 Worksheet Patient Problems: Problems Problem Status Onset Constipation Acute Dehydration Acute Generalized weakness Acute Near syncope Acute Parkinsonian syndrome Acute Rhabdomyolysis Acute
[2018-08-26] MEDS: GABAPENTIN 300 MG CAP PO SCH (19:58)
[2018-08-26] MEDS: MELATONIN 3 MG TAB PO SCH (20:59)
[2018-08-27] MEDS: POLYETHYLENE GLYCOL 3350 17 GM PKT PO SCH (08:58)
[2018-08-27] MEDS: ENOXAPARIN 40 MG/0.4 ML SYR SC SCH (08:58)
[2018-08-27] MEDS: PRAVASTATIN SODIUM 40 MG TAB PO SCH (08:59)
[2018-08-27] MEDS: ASPIRIN EC 81 MG TAB PO SCH (08:59)
[2018-08-27] MEDS: SENNOSIDES 1 TAB PO SCH (08:59)
[2018-08-27] MEDS: CYANO/VITAMIN B12 1000 MCG TAB PO SCH (08:59)
[2018-08-27] MEDS: MULTIVITAMINS 1 EACH TAB PO SCH (08:59)
[2018-08-27] MEDS: LISINOPRIL 20 MG TAB PO SCH (08:59)
[2018-08-27] MEDS: CARBIDOPA/LEVODOPA 25 MG/100 MG TAB PO SCH ×3 (08:59→22:37)
--- NOTE | 2018-08-27 09:52 | SOAPPROG ---
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 Increased to 1 tablet three times daily on 08/21/2018 with improvement in movements. * Initial functional independence measure is 60 on 08/22/2018, imprved to 66 as of 08/27/2018. SBA/CGA bed mobility. Transfers CGA FWW. Ambulated 150' FWW, very slow. G & H SBA/CGA. UB dressing with set-up, SBA; LB with CGA. Decreased balance in the morning. Toileting and transfer SBA - CGA. * Continue PT and OT to optimize his mobility and activities of daily living. * Increase Sinemet from 1 tab TID to 1 1/2 tab TID starting afternoon of 2018. Hypophonia and cognitive impairment: * Scored 3/30 on the SLUMS initially; improved to 10/30 on 08/26/2018. Lost 4 points on clock-drawing partly due to visual impairment. * Deficits to attention, memory and speed of processing. * Continue treatment per Speech and Language Pathology. Cerebrovascular disease: Continue secondary prevention with aspirin, blood pressure control, and lipid control. Glaucoma. Visual impairment per OT testing. 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 Visual acuity less than 20/100 both eyes, 20/125 left eye, 20/160 right eye. * On discussion 08/27/2018, he reports that he uses timolol daily and that he self administers. Will initiate timolol 0.5% each eye q.day. * Referral to Ophthalmology or Neuro-Ophthalmology after discharge. Question of UTI symptoms. Nurse reports observing frequent voiding of small quantities. Patient is without complaint, . Will not order urinalysis at present. Atrial fibrillation on EKG, 08/19/2018. CHADS2-Vasc score is 5, corresponding to a 10% risk per year of stroke, TIA or thromboembolism. HAS-BLED score is 2, corresponding to a 2-4% risk per year of major bleed. * Discussed with patient's son and [id number], 08/20/2018. Doubtful that he has capacity to understand his medical conditions and make appropriate decisions. Concern regarding fall risk and risk for intracranial hemorrhage. Will defer decision regarding anticoagulation to discussion with primary care provider after discharge from inpatient rehabilitation. Continue aspirin. Hypertension: He has had the addition of amlodipine 2.5 mg daily in the hospital and was continued on his home dose of lisinopril 20 m,g daily. He had elevated blood pressures in the hospital as high as 164/95. * He is orthostatic, possibly due to titration of Sinemet. Encourage PO hydration. * Discontinue amlodipine 2.5 mg q.day starting 08/23/2018. Continue lisinopril 20 mg q.day but hold for standing systolic blood pressure less than 100. Continue to monitor. * Has 16 mmHg systolic blood pressure drop and 7 beat per minute heart rate increase with orthostatic position changes, 08/26/2018, but no symptoms. Peripheral neuropathy, for which, he has been prescribed gabapentin. Will have to determine further history regarding whether this has been helpful and exactly what it is prescribed for. Rhabdomyolysis appears to have resolved: He had mild hypokalemia in the hospital. * BMP 08/20/2018 with normal potassium, mild dehydration.. Leukocytosis on the day of admission: * Resolved on CBC 08/20/2018. History of hepatitis C: Tested with hepatitis C antibody test reactive on 2017. On 11/28/2017, HCV RNA was undetectable with serum. Prophylaxis: Mobility is improving. Will continue enoxaparin until he is consistently walking 150 ft or more 3 times a day and ambulating to meals, as prophylaxis against deep venous thrombosis. DISPOSITION: Attended staffing, 15 min, 08/27/2018. Discussed with case management, dietitian, nursing, PT, OT, PROTECTIVE SERVICES OFFICER. May need a higher level of care than is available at his current [facility]. Observe for functional improvement with further titration of Sinemet. Continue tentative discharge date of 09/03/2018. Followup: He will see neurologist, Dr. Osiel Martell, in followup after his discharge from inpatient rehabilitation. 08/27/18 11:58 Subjective: No complaints. Slept well. Not in pain. No fevers or chills, no cough or dyspnea. Objective: Vital Signs Temp Pulse Resp BP Pulse Ox 36.6 C 67 16 126/82 H 94 08/27/18 08:00 08/27/18 08:00 08/27/18 08:00 08/27/18 08:00 08/27/18 08:00 Laboratory Results 08/20/18 05:30 08/20/18 05:30 08/26/18 08/27/18 08/28/18 05:59 05:59 05:59 Intake Total 558 700 550 Output Total 75 Balance 483 700 550 - Time Spent With Patient Time Spent With Patient: Greater than 35 min floor time today, including more than 50% of time in coordination of care during staffing meeting, and counseling patient. Physical Exam - Physical Exam General Appearance: WD/WN, alert, no apparent distress Respiratory: normal breath sounds, No crackles, No rhonchi, No wheezing Cardiac/Chest: regular rate, rhythm, No edema, No diastolic murmur, No systolic murmur Skin: normal color, warm/dry Neuro/Psych: alert, normal mood/affect, oriented x 3, speech abnormalities ( Hypophonia), other (Flexed posture) ICD10 Worksheet Patient Problems: Problems Problem Status Onset Constipation Acute Dehydration Acute Generalized weakness Acute Near syncope Acute Parkinsonian syndrome Acute Rhabdomyolysis Acute
[2018-08-27] MEDS: GABAPENTIN 300 MG CAP PO SCH (18:52)
[2018-08-28] MEDS: POLYETHYLENE GLYCOL 3350 17 GM PKT PO SCH (08:56)
[2018-08-28] MEDS: ENOXAPARIN 40 MG/0.4 ML SYR SC SCH (08:57)
[2018-08-28] MEDS: ASPIRIN EC 81 MG TAB PO SCH (08:57)
[2018-08-28] MEDS: CARBIDOPA/LEVODOPA 25 MG/100 MG TAB PO SCH ×2 (08:57→15:18)
[2018-08-28] MEDS: CYANO/VITAMIN B12 1000 MCG TAB PO SCH (08:58)
[2018-08-28] MEDS: MULTIVITAMINS 1 EACH TAB PO SCH (08:58)
[2018-08-28] MEDS: LISINOPRIL 20 MG TAB PO SCH (08:58)
[2018-08-28] MEDS: SENNOSIDES 1 TAB PO SCH (08:58)
[2018-08-28] MEDS: PRAVASTATIN SODIUM 40 MG TAB PO SCH (08:58)
[2018-08-28] MEDS ORDERED: TIMOLOL 0.5% 15 ML OPHT.BTL EACHEYE SCH (09:00)
[2018-08-28 09:58] VITALS: BP 126/80
--- NOTE | 2018-08-28 11:17 | SOAPPROG ---
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 Increased to 1 tablet three times daily on 08/21/2018 with improvement in movements. * Initial functional independence measure is 60 on 08/22/2018, imprved to 66 as of 08/27/2018. SBA/CGA bed mobility. Transfers CGA FWW. Ambulated 150' FWW, very slow. G & H SBA/CGA. UB dressing with set-up, SBA; LB with CGA. Decreased balance in the morning. Toileting and transfer SBA - CGA. * Continue PT and OT to optimize his mobility and activities of daily living. * Increase Sinemet from 1 tab TID to 1 1/2 tab TID starting afternoon of 2018. Hypophonia and cognitive impairment: * Scored 3/30 on the SLUMS initially; improved to 10/30 on 08/26/2018. Lost 4 points on clock-drawing partly due to visual impairment. * Deficits to attention, memory and speed of processing. * Continue treatment per Speech and Language Pathology. Cerebrovascular disease: Continue secondary prevention with aspirin, blood pressure control, and lipid control. Glaucoma. Visual impairment per OT testing. 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 Visual acuity less than 20/100 both eyes, 20/125 left eye, 20/160 right eye. * On discussion 08/27/2018, he reports that he uses timolol daily and that he self administers. Will initiate timolol 0.5% each eye q.day. * Referral to Ophthalmology or Neuro-Ophthalmology after discharge. Question of UTI symptoms. Nurse reports observing frequent voiding of small quantities. Patient is without complaint, . Will not order urinalysis at present. Atrial fibrillation on EKG, 08/19/2018. CHADS2-Vasc score is 5, corresponding to a 10% risk per year of stroke, TIA or thromboembolism. HAS-BLED score is 2, corresponding to a 2-4% risk per year of major bleed. * Discussed with patient's son and [id number], 08/20/2018. Doubtful that he has capacity to understand his medical conditions and make appropriate decisions. Concern regarding fall risk and risk for intracranial hemorrhage. Will defer decision regarding anticoagulation to discussion with primary care provider after discharge from inpatient rehabilitation. Continue aspirin. Hypertension: He has had the addition of amlodipine 2.5 mg daily in the hospital and was continued on his home dose of lisinopril 20 m,g daily. He had elevated blood pressures in the hospital as high as 164/95. * He is orthostatic, possibly due to titration of Sinemet. Encourage PO hydration. * Discontinue amlodipine 2.5 mg q.day starting 08/23/2018. Continue lisinopril 20 mg q.day but hold for standing systolic blood pressure less than 100. Continue to monitor. * Has 16 mmHg systolic blood pressure drop and 7 beat per minute heart rate increase with orthostatic position changes, 08/26/2018, but no symptoms. Peripheral neuropathy, for which, he has been prescribed gabapentin. Will have to determine further history regarding whether this has been helpful and exactly what it is prescribed for. Rhabdomyolysis appears to have resolved: He had mild hypokalemia in the hospital. * BMP 08/20/2018 with normal potassium, mild dehydration.. Leukocytosis on the day of admission: * Resolved on CBC 08/20/2018. History of hepatitis C: Hepatitis C antibody test reactive on 10/25/2017. On 11/28, HCV RNA was undetectable with serum. Prophylaxis: Mobility is improving. Will continue enoxaparin until he is consistently walking 150 ft or more 3 times a day and ambulating to meals, as prophylaxis against deep venous thrombosis. DISPOSITION: Attended staffing, 15 min, 08/27/2018. Discussed with case management, dietitian, nursing, PT, OT, CHEMICAL WEIGHER. Continues to have significant fall risk, and with cognitive impairment, needs 24 hr supervision. Planning discharge to [facility] nursing [facility], 08/29/2018. Followup: He will see neurologist, Dr. Osiel Martell, in followup after his discharge from inpatient rehabilitation. 08/28/18 11:15 Objective: Vital Signs Temp Pulse Resp BP Pulse Ox 36.5 C 75 16 126/80 H 98 08/28/18 05:02 08/28/18 09:57 08/28/18 05:02 08/28/18 09:57 08/28/18 08:55 Laboratory Results 08/20/18 05:30 08/20/18 05:30 08/27/18 08/28/18 08/29/18 05:59 05:59 05:59 Intake Total 700 1290 240 Balance 700 1290 240 Physical Exam - Physical Exam General Appearance: WD/WN, alert, no apparent distress Respiratory: No respiratory distress, No accessory muscle use Skin: normal color, warm/dry Neuro/Psych: alert, normal mood/affect, speech abnormalities (Hypophonia), other (Short steps, narrow base, slow, with front wheeled walker. Observed unsafe attempt to transfer from walking to seated in chair. Needed instruction by staff for safety.) ICD10 Worksheet Patient Problems: Problems Problem Status Onset Constipation Acute Dehydration Acute Generalized weakness Acute Near syncope Acute Parkinsonian syndrome Acute Rhabdomyolysis Acute
--- NOTE | 2018-08-28 11:20 | PDOREHIP ---
Admission [facility] - Admission - 3 Day Assessment Period Admission Date/Day 1: 08/19/18 Day 2: 08/20/18 Day 3: 08/21/18 - Active Diagnoses Comorbidities and Co-existing Conditions at Admission: 34668. None of the Above Discharge [facility] - Discharge - 3 Day Assessment Period 2 Days Prior to Anticipated Discharge Date: 08/30/18 1 Day Prior to Anticipated Discharge Date: 08/31/18 Anticipated Discharge Date: 09/01/18 - Discharge Skin Conditions Unhealed Pressure Ulcer (1 or more/Stage 1 or >)-Discharge: 0. No # Stage 1 Pressure Ulcers-Discharge: 0 # Stage 2 Pressure Ulcers-Discharge: 0 # of These Stage 2 Pressure Ulcers Present on Admission: 0 # Stage 3 Pressure Ulcers-Discharge: 0 # of These Stage 3 Pressure Ulcers Present on Admission: 0 # Stage 4 Pressure Ulcers-Discharge: 0 # of These Stage 4 Pressure Ulcers Present on Admission: 0 # Unstageable Pressure Ulcers (Non-remove Dress)-Discharge: 0 # These Unstageable Pressure Ulcers (NRD)-Present on Admit: 0 # Unstageable Pressure Ulcers (Slough/Eschar)-Discharge: 0 # These Unstageable Pressure Ulcers(Slough) Present on Admit: 0 # Unstageable Pressure Ulcers (Deep Tissue Injury)-Discharge: 0 # These Unstageable Pressure Ulcers (DTI) Present on Admit: 0
--- NOTE | 2018-08-28 16:34 | PDDCSUM ---
Discharge Summary Discharge Summary: Date of admission: 08/19/2018 Date of discharge: 08/28/2018 Attending physician: Doctor Schneider Dictating physician: Doctor Schneider Admitting diagnosis: Parkinsonism Discharge diagnosis: Parkinsonism Other discharge diagnoses: Atrial fibrillation, glaucoma, hypertension Procedures: None Complications: None Consultations: None History and hospital course: This patient was admitted to [facility] on 08/15/2018 after a fall at home at his assisted living facility. The discharge he had a rhabdomyolysis. He was observed to be parkinsonian. He had brain imaging in the past which showed old stroke in the basal ganglia. He was seen by Neurology and started on Sinemet 0.5 tablets three times daily. He had gradual improvement in rehabilitation. Sinemet was titrated to 1 tab three times daily and subsequently to 1-1/2 tabs three times daily. He had progressive improvement in ambulation though remained quite parkinsonian with short steps, retro pulse of loss of balance, and requiring standby assist or supervision with cues for safety with transfers and ambulation. He required standby assist and occasional contact guard assist for loss of balance with activities of daily living. He had cognitive impairment and was assessed and treated by speech therapy. The [facility] mental status exam was administered and he scored 3/ 30. Several days later it was repeated and he scored a 10/30 though it was noted that he may have lost as many as 4 points due to vision impairment with the clock drawing task. However he remained within the significantly cognitively impaired range. He had an episode of irregular heartbeat and EKG showed atrial fibrillation. Treatment options were discussed with patient's son and [id number]. Due to his fall risk it was decided to continue aspirin and not initiate anticoagulation. His CHADS2-Vasc score was 5, corresponding to a 10% risk per year of stroke, TIA or thromboembolism. HAS-BLED score is 2, corresponding to a 2-4% risk per year of major bleed. He can reconsider anticoagulation after his discharge, with his primary care provider. Hypertension: He had the addition of amlodipine 2.5 mg daily in the hospital and was continued on his home dose of lisinopril 20 m,g daily. He had elevated blood pressures in the hospital as high as 164/95. * He is orthostatic, possibly due to titration of Sinemet. Encourage PO hydration. * Discontinued amlodipine 2.5 mg q.day starting 08/23/2018. Continued lisinopril 20 mg q.day but hold for standing systolic blood pressure less than 100. Glaucoma. Visual impairment per OT testing. 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 Visual acuity less than 20/100 both eyes, 20/125 left eye, 20/160 right eye. * On discussion 08/27/2018, he reports that he uses timolol daily and that he self administers. Initiated timolol 0.5% each eye q.day. * Referral to Ophthalmology or Neuro-Ophthalmology after discharge. Discharge plan: Disposition: He is discharging to [facility]. Condition: Good Diet: Regular Activity: Ad shameka, but he needs supervision for mobility related ADLs. Medications: Please see separate medication reconciliation sheet
== END 2018-08-28 17:26 | DRG 57 ==
LOC: BREH 14:20 → F3E 08-26 11:11
PROVIDERS: ADMIT Internal Medicine Hospice and Palliative Medicine; ATTEND Internal Medicine Hospice and Palliative Medicine
DX: G21.4 Vascular parkinsonism (principal); R49.8 Other voice and resonance disorders; R41.89 Other symptoms and signs involving cognitive functions and awareness; I48.91 Unspecified atrial fibrillation; Z86.19 Personal history of other infectious and parasitic diseases; G62.9 Polyneuropathy, unspecified; Z86.73 Personal history of transient ischemic attack (TIA), and cerebral infarction without residual deficits; I10 Essential (primary) hypertension; H40.9 Unspecified glaucoma; M19.042 Primary osteoarthritis, left hand
CPT/HCPCS: 92507-GN; 92523-GN; 92610-GN; 97110-GO; 97110-GP; 97112-GP; 97116-GP; 97162-GP; 97166-GO; 97530-GO; 97530-GP; 97535-GO; G0515-GO; J1650